=== PATIENT | female | born 1965 | race Caucasian/White ===

== ENCOUNTER 2017-06-25 07:58 | Day surgery (SDC) | payer OTHER ==
[~2017-06-25 07:58] MED LIST: Buffered Lidocaine 0.9% SYRIN* 5 ML/SYR SYRINGE INTRADERM ONE; DiMENhydriNATE IV* 50 MG/ML VIAL IV PUSH PRN; Famotidine IV* 10 MG/ML 2 ML (20 mg) IV ONE; Morphine INJ* 2 MG/ML 1 ML CARPUJECT IV PRN; Nalbuphine* 20 MG/ML 1 ML VIAL IV PRN; Naloxone* 0.4 MG/ML 1 ML VIAL IV PRN; Scopolamine 1.5 mg* PATCH TRANSDERM PRN; fentaNYL* 50 MCG/ML 2 ML VIAL (100 MCG VIAL) IV PRN; oxyCODONE/Acetamin 5/325 MG* TAB PO PRN
[2017-06-25] MEDS ORDERED: fentaNYL* 50 MCG/ML 2 ML VIAL (100 MCG VIAL) ONE (08:01)
[2017-06-25] MEDS ORDERED: Midazolam* 1 MG/ML 5 ML VIAL (5 MG) ONE (08:01)
[2017-06-25] MEDS ORDERED: Famotidine IV* 10 MG/ML 2 ML (20 mg) ONE (08:16)
[2017-06-25] MEDS ORDERED: ceFAZolin 2 GM PREMIX (*) 2 GM/50 ML BAG IVPB ONE (08:16)
[2017-06-25] MEDS ORDERED: Insulin REGULAR(*) 1 UNITS UNIT ONE (09:00)
[2017-06-25] MEDS ORDERED: PROCHLORPERAZINE INJ 5 MG/ML 2 ML VIAL ONE (09:40)
[2017-06-25] MEDS ORDERED: Propofol* 10 MG/ML 20 ML BTL IV PUSH ONE (09:40)
[2017-06-25] MEDS ORDERED: Ketorolac INJ* 30 MG/ML 1 ML VIAL ONE (09:40)
[2017-06-25] MEDS ORDERED: Ondansetron INJ* 2 MG/ML VIAL ONE (09:40)
[2017-06-25] MEDS ORDERED: Lidocaine 2% PF * 5 ML VIAL ONE (09:41)
[2017-06-25] MEDS ORDERED: Morphine INJ* 10 MG/ML 1 ML CARPUJECT ONE (09:42)
[2017-06-25] MEDS ORDERED: Bupivacaine 0.5%* 50 ML VIAL ONE (09:51)
--- NOTE | 2017-06-25 11:32 | OP ---
Operative Report - Blank - Operative Report Date of Operation: 06/25/17 Note: PATIENT: Mell Liz DATE OF : 1965 DATE OF SURGERY: 06/25/2017 SURGEON: Mauro Bhat MD HAND TOUCH UP PAINTER: BRYANNA Esteban, whos assistance was necessary for positioning, retraction, help with instrumentation, and closure. ANESTHESIOLOGIST: Pato Cummings MD PREOPERATIVE DIAGNOSIS: Left osteochondral lesion of the talus. Left ankle anterior impingement with distal tibia osteophytes. POSTOPERATIVE DIAGNOSIS: Left osteochondral lesion of the talus. Left ankle anterior impingement with distal tibia osteophytes. OPERATION: 1. Left ankle arthroscopy with extensive debridement. 2. Left ankle curettage and microfracture of talar osteochondral lesion. 3. Left ankle excision of distal tibial osteophytes/saucerization. ANESTHESIA: GETA IMPLANTS: none TOURNIQUET TIME: less than one hour with a well-padded calf tourniquet at 225 mmHg. SPECIMENS: none ESTIMATED BLOOD LOSS: minimal COMPLICATIONS: none STATUS: Stable from the operating room to the recovery room and then home. INDICATIONS FOR PROCEDURE: Mell has had persistent ankle pain at the anteromedial ankle joint and medial talar dome. She has failed nonoperative treatment. Both operative and non operative treatment alternatives were reviewed. Further, the nature and risks of surgery were reviewed in careful detail, in the office as well as the pre- operative holding area. Our discussions regarding the risks of surgery included , but were not limited to, infection, wound problems, nerve injury, neuroma, RSD , persistent symptoms, blood clot, failure of the surgery, and even the remote chance of catastrophic complication, including loss of limb. DESCRIPTION OF PROCEDURE: The patient was seen in the preoperative holding unit and informed written consent was obtained. The appropriate extremity was marked. The patient was then brought to the operating room and carefully positioned on the operating room table. Anesthesia was induced. All bony prominences were padded with great care. A chlorhexidine based pre-scrub was performed followed by a chloraprep prep and drape in standard sterile fashion. A surgical safety pause was then conducted in which we confirmed the appropriate patient, extremity, planned procedure, availability of equipment, indication and administration of prophylactic antibiotics, and DVT prophylaxis in the form of a compression boot on the non-surgical extremity. I began with placement of a sterile calf tourniquet 3 finger-breadths distal to the fibular neck. An Esmarch exsanguination of the limb was then performed and the tourniquet inflated. The leg was positioned in the noninvasive ankle arthroscopy leg haile setup. I began by establishing the anteromedial portal. I utilized a spinal needle for this. Great care was taken to protect the superficial neurovascular structures. Under direct visualization, I then established an anterolateral portal. Great care was taken to protect the superficial peroneal nerve. I utilized the full radius shaver to remove a considerable amount of synovitis from the anterior aspect of the ankle joint. This was carefully removed to give a nice view of the ankle joint. There was an osteochondral lesion of the talus at the medial talar dome. There was also a small chondral lesion on the medial malleolus. At this point, I utilized a ringed curette to remove loose debris from within the osteochondral lesion. This was curetted back to a stable rim around the perimeter of lesion. The calcified cartilage layer was then removed. I then utilized the microfracture awls to microfracture the lesion. There was healthy bleeding from the subchondral bone. I then turned my attention to the anteriormedial impingement of the ankle joint. The anterior aspect of the distal tibia was exposed using the shaver and arthroscopic cautery. This revealed a protruding osteophyte at the medial aspect of the distal tibia. A 3 mm arthroscopic kelsea was utilized to kelsea down the osteophyte perform a distal tibia saucerization and improved contour of the distal tibia. I then again utilized the full radius shaver to remove all additional debris from the ankle joint. I removed the arthroscopic equipment and closed the portals utilizing 3-0 nylon suture. At this point, a sterile dressing was applied and the ankle was splinted in a neutral position. The patient was then awakened from anesthesia and transferred to the recovery room in stable condition. There were no complications. All needle and sponge counts were correct at the end of the case. ATTESTATION: I attest I was present and scrubbed and performed the critical portions of the procedure myself. POSTOPERATIVE PLAN: Mell will remain nonweightbearing for an anticipated duration of six weeks. Follow up will be in two weeks for likely suture removal, Steri-Strip application and transition into a tall Aircast boot. The patient may begin gentle active dorsiflexion and plantarflexion of the ankle beginning two weeks postoperatively.
[2017-06-25 12:07] VITALS: BP 122/76
[2017-06-28] MEDS ORDERED: Scopolamine PATCH Remove* 1 NOTE MISC PATCH OFF ONE (05:43)
== END 2017-06-25 12:31 | disposition home or self-care (01) ==
LOC: OR 07:58
PROVIDERS: ATTEND Orthopaedic Surgery
DX: M93.272 Osteochondritis dissecans, left ankle and joints of left foot (principal); M25.772 Osteophyte, left ankle; M25.872 Other specified joint disorders, left ankle and foot; I10 Essential (primary) hypertension; E11.9 Type 2 diabetes mellitus without complications; Z79.84 Long term (current) use of oral hypoglycemic drugs; F41.8 Other specified anxiety disorders
CPT/HCPCS: J0690; J0780; J1885; J2250; J2270; J2405; J2704; J3010

== ENCOUNTER 2017-08-26 13:42 | Emergency (ER) | payer OTHER ==
[2017-08-26 14:02] VITALS: BP 140/83
[2017-08-26] MEDS ORDERED: Albuterol 2.5 MG/3 ML NEB.SOL* (0.083%) INH ONE (14:46)
[2017-08-26] MEDS ORDERED: predniSONE TAB* 20 MG PO ONE (14:46)
--- NOTE | 2017-08-26 14:50 | UC ---
Respiratory Complaint HPI - HPI Summary HPI Summary: PATIENT COMPLAINS OF BRONCHOSPASTIC COUGH, SHORTNESS OF BREATH AND WHEEZE THAT STARTED YESTERDAY. FEELS TIRED. HAS SOME LEFT FLANK PAIN BUT DENIES ANY URINARY SYMPTOMS. WORSE WITH DEEP INSPIRATION AND WHEN LAYING DOWN AT NIGHT. NO FEVER, NAUSEA, ST OR EAR PAIN. - History of Current Complaint Chief Complaint: UCRespiratory Stated Complaint: HEAD/CHEST CONGESTION COUGH LOWER BACK PAIN Time Seen by Provider: 08/26/17 14:38 Hx Obtained From: Patient Hx Last Menstrual Period: 2006, essur procedure Onset/Duration: Gradual Onset, Lasting Days - 1 DAY, Still Present Timing: Constant Severity Initially: Moderate Severity Currently: Moderate Pain Intensity: 7 Pain Scale Used: 0-10 Numeric Character: Cough: Nonproductive Aggravating Factors: Deep Breaths, Recumbent Position Alleviating Factors: Nothing Associated Signs And Symptoms: Positive: Dyspnea, Wheezing. Negative: Fever, URI, Nasal Congestion - Allergies/Home Medications Allergies/Adverse Reactions: Allergies Allergy/AdvReac Type Severity Reaction Status Date / Time No Known Allergies Allergy Verified 08/26/17 14:03 PMH/Surg Hx/FS Hx/Imm Hx Endocrine History: Diabetes - Surgical History Surgical History: Yes Surgery Procedure, Year, and Place: 2012 RIGHT SHOULDER ARTHROSCOPIC SURGERY, [place]. 2009 RIGHT KNEE ARTHROSCOPIC SURGERY, [place]. 2005 [facility] [place], [place]. left ankle surgery June 2017 - Family History Known Family History: Negative: Hypertension - Social History Alcohol Use: Occasionally Substance Use Type: None Smoking Status (MU): Never Smoked Tobacco Review of Systems Constitutional: Fatigue ENT: Nasal Discharge Respiratory: Shortness Of Breath, Cough, Other - WHEEZE Cardiovascular: Negative Gastrointestinal: Negative Genitourinary: Negative Musculoskeletal: Myalgia - LEFT MID BACK PAIN All Other Systems Reviewed And Are Negative: Yes Physical Exam Triage Information Reviewed: Yes Appearance: No Pain Distress, Well-Nourished, Ill-Appearing - MILD Vital Signs: Initial Vital Signs Temp 98.3 F 08/26/17 13:57 Pulse 86 08/26/17 13:57 Resp 16 08/26/17 13:57 BP 140/83 08/26/17 13:57 Pulse Ox 98 08/26/17 13:57 Eyes: Positive: Conjunctiva Clear ENT: Positive: Hearing grossly normal, Pharyngeal erythema, TMs normal Neck: Positive: Supple, Nontender, No Lymphadenopathy Respiratory: Positive: No respiratory distress, No accessory muscle use, Decreased breath sounds, Wheezing - DIFFUSELY Cardiovascular Exam: Normal Abdomen Description: Positive: Soft. Negative: CVA Tenderness (R), CVA Tenderness (L) Musculoskeletal: Positive: No Edema Neurological: Positive: Alert Psychological: Positive: Age Appropriate Behavior Skin: Negative: rashes UC Diagnostic Evaluation - Laboratory O2 Sat by Pulse Oximetry: 98 Re-Evaluation - Re-Evaluation First Eval Re-Evaluation Time: 15:40 - MODEST IMPROVEMENT AFTER ALBUTEROL NEB AND PREDNISONE 60MG Change: Improved Respiratory Course/Dx - Differential Dx/Diagnosis Provider Diagnoses: ACUTE BRONCHITIS WITH BRONCHOSPASM Discharge - Sign-Out/Discharge Documenting (check all that apply): Discharge/Admit/Transfer - Discharge Plan Condition: Stable Disposition: HOME Prescriptions: Albuterol 2.5MG/3ML (0.083%)* [Ventolin 2.5 MG/3 ML NEB.DARLEEN*] 2.5 mg INH Q4H PRN #1 box PRN Reason: Wheezing Albuterol HFA INHALER* [Ventolin HFA Inhaler*] 2 puff INH Q4H PRN #1 mdi PRN Reason: Shortness Of Breath Benzonatate CAP* [Tessalon CAP*] 1 - 2 cap PO TID PRN #30 cap PRN Reason: Cough Inhaler, Assist Devices [Aerochamber Mini] 1 each MC Q4H PRN #1 spacer PRN Reason: Cough Nebulizer [Mini Plus Nebulizer] 1 each MC Q4H PRN #1 each PRN Reason: Shortness Of Breath predniSONE TAB* [Deltasone TAB*] 50 mg PO DAILY #5 tab Patient Education Materials: Acute Bronchitis (ED), Bronchospasm (ED) Referrals: Ismael Pfeiffer MD [Primary Care Provider] - If Needed Additional Instructions: CHEST X-RAY TODAY WAS UNREMARKABLE. YOUR SYMPTOMS ARE LIKELY INFLAMMATORY/ VIRALLY MEDIATED AND SHOULD RESOLVE ON THEIR OWN WITH TIME. NO INDICATION FOR ANTIBIOTICS AT PRESENT. REST, HYDRATE, OTC MEDS NEEDED. WILL TREAT WITH PREDNISONE AND ALBUTEROL TO HELP WITH AIRWAY INFLAMMATION AND COUGH MEDICINE. SEEK FOLLOW-UP IF YOU ARE NOT IMPROVING OVER THE NEXT 1-2 WEEKS. TRY THE COUGH MEDICINE FOR THE FIRST TIME WHILE YOU'RE HOME TO DETERMINE IF IT MAKES YOU SLEEPY OR NOT. YOU MAY CALL ME ON THURSDAY AT THE [facility] BETWEEN 7AM AND 2PM IF YOU HAVE ANY QUESTIONS OR CONCERNS. [phone] - Billing Disposition and Condition Condition: STABLE Disposition: Home
--- NOTE | 2017-08-26 15:18 | RAD ---
Indication: Shortness of breath, cough. 2 views of the chest including dual energy PA views demonstrate no mediastinal shift. Heart is of normal size and configuration. Lung hyde are clear. IMPRESSION: No active cardiopulmonary disease is noted.
--- NOTE | 2017-08-28 13:10 | UC ---
- Progress Note Progress Note: PATIENT CALLED STATING THAT SHE IS NOT FEELING ANY BETTER WITH PREDNISONE, ALBUTEROL AND COUGH MEDICINE. AZITHROMYCIN SENT TO [facility]. ADVISED PATIENT TO CONTINUE WITH STEROIDS AND BRONCHODILATORS AND TO FOLLOW-UP WITH PCP IF STILL NOT IMPROVING DESPITE ANTIBIOTIC TREATMENT. - TOMY KIRBY M.D. Re-Evaluation - Re-Evaluation First Eval Re-Evaluation Time: 15:40 - MODEST IMPROVEMENT AFTER ALBUTEROL NEB AND PREDNISONE 60MG Change: Improved Discharge - Sign-Out/Discharge Documenting (check all that apply): Post-Discharge Follow Up - Discharge Plan Condition: Stable Disposition: HOME Prescriptions: Albuterol 2.5MG/3ML (0.083%)* [Ventolin 2.5 MG/3 ML NEB.DARLEEN*] 2.5 mg INH Q4H PRN #1 box PRN Reason: Wheezing Albuterol HFA INHALER* [Ventolin HFA Inhaler*] 2 puff INH Q4H PRN #1 mdi PRN Reason: Shortness Of Breath Azithromycin 500 mg PO DAILY #5 tab Benzonatate CAP* [Tessalon CAP*] 1 - 2 cap PO TID PRN #30 cap PRN Reason: Cough Inhaler, Assist Devices [Aerochamber Mini] 1 each MC Q4H PRN #1 spacer PRN Reason: Cough Nebulizer [Mini Plus Nebulizer] 1 each MC Q4H PRN #1 each PRN Reason: Shortness Of Breath predniSONE TAB* [Deltasone TAB*] 50 mg PO DAILY #5 tab Patient Education Materials: Acute Bronchitis (ED), Bronchospasm (ED) Referrals: Ismael Pfeiffer MD [Primary Care Provider] - If Needed Additional Instructions: CHEST X-RAY TODAY WAS UNREMARKABLE. YOUR SYMPTOMS ARE LIKELY INFLAMMATORY/ VIRALLY MEDIATED AND SHOULD RESOLVE ON THEIR OWN WITH TIME. NO INDICATION FOR ANTIBIOTICS AT PRESENT. REST, HYDRATE, OTC MEDS NEEDED. WILL TREAT WITH PREDNISONE AND ALBUTEROL TO HELP WITH AIRWAY INFLAMMATION AND COUGH MEDICINE. SEEK FOLLOW-UP IF YOU ARE NOT IMPROVING OVER THE NEXT 1-2 WEEKS. TRY THE COUGH MEDICINE FOR THE FIRST TIME WHILE YOU'RE HOME TO DETERMINE IF IT MAKES YOU SLEEPY OR NOT. YOU MAY CALL ME ON THURSDAY AT THE [facility] BETWEEN 7AM AND 2PM IF YOU HAVE ANY QUESTIONS OR CONCERNS. [phone] - Billing Disposition and Condition Condition: STABLE Disposition: Home
== END 2017-08-26 16:00 | disposition home or self-care (01) ==
LOC: UCEAST 13:42
DX: J20.9 Acute bronchitis, unspecified (principal); E11.9 Type 2 diabetes mellitus without complications
CPT/HCPCS: 71046; 99212; G0463; J7512

== ENCOUNTER 2017-09-06 13:51 | Inpatient (IN) | payer OTHER ==
[2017-09-06] MEDS ORDERED: Albuterol/Ipratropium NEB.SOL* Albuterol 2.5 MG/Ipratropium 0.5 MG 3 ML INH ONE ×2 (14:17→17:57)
[2017-09-06] MEDS ORDERED: methylPREDNISolone 125 MG* 2 ML VIAL IV ONE (14:37)
[2017-09-06 15:23] LABS: ABS Basophils 0.2 10^3/ul (0-0.2); ABS Eosinophils 0.4 10^3/ul (0-0.6); ABS Lymphocytes 3.4 10^3/ul (1.0-4.8); ABS Monocytes 0.5 10^3/ul (0-0.8); ABS Neutrophils 9.5 10^3/ul (1.5-7.7); ABS Nucleated RBC 0 10^3/ul; Eosinophil % 2.5 % (0-6); Hematocrit 42 % (35-47); Hemoglobin 14.2 g/dl (12.0-16.0); Lymphocyte % 24.5 % (25-47); Mean Corpuscular HGB Conc 34 g/dl (31-36); Mean Corpuscular Hemoglobin 28 pg (27-31); Mean Corpuscular Volume 84 fL (80-97); Mean Platelet Volume 6.9 um3 (7.4-10.4); Nucleated Red Blood Cells % 0.1; Platelet Count 434 10^3/ul (150-450); Red Blood Count 5.04 10^6/ul (4.00-5.40); Red Cell Distribution Width 14 % (10.5-15); White Blood Count 13.9 10^3/ul (3.5-10.8)
[2017-09-06 15:24] LABS: INR 0.89 (0.77-1.02)
--- NOTE | 2017-09-06 15:33 | RAD ---
HISTORY: sob,wheezing COMPARISONS: September 02, 2017 VIEWS: 1: frontal portable view of the chest at 3:11 PM FINDINGS: LINES AND TUBES: None. CARDIOMEDIASTINAL SILHOUETTE: The cardiomediastinal silhouette is normal for portable technique. PLEURA: The costophrenic angles are sharp. No pleural abnormalities are noted. LUNG PARENCHYMA: The lungs are clear. ABDOMEN: The upper abdomen is clear. There is no subphrenic gas. BONES AND SOFT TISSUES: No bone or soft tissue abnormalities are noted. IMPRESSION: NO ACTIVE CARDIOPULMONARY DISEASE.
[2017-09-06 15:37] LABS: EGFR Non-African American 58.7 (>60)
[2017-09-06] MEDS ORDERED: NS 0.9% 1000 ML* 2,000 ML IV ONE (16:07)
[2017-09-06] MEDS ORDERED: Iodixanol* (CONTRAST) 320 MG/ML 100 ML SDV IV ONE (16:17)
--- NOTE | 2017-09-06 17:25 | RAD ---
HISTORY: SOB,POSITIVE DDIMER,LIPASE 157 COMPARISONS: None TECHNIQUE: Multiple contiguous axial CT scans were obtained of the chest, abdomen, and pelvis after the administration of intravenous contrast. Coronal and sagittal multiplanar reformations are submitted for review.. Oral contrast was not administered. Delayed images were obtained through the abdomen and pelvis. FINDINGS: CHEST NECK AND THYROID: The lower neck and thyroid are unremarkable. CHEST WALL: There is no lower cervical, axillary, or supraclavicular lymphadenopathy by size criteria. HEART AND PERICARDIUM: The heart is unremarkable. AORTA AND PULMONARY VASCULATURE: The aorta and pulmonary vasculature are normal. There is no pulmonary arterial filling defect to suggest pulmonary was on MEDIASTINUM: There is no mediastinal lymphadenopathy by size criteria. PEREZ: There is no hilar lymphadenopathy by size criteria. AIRWAY AND ESOPHAGUS: The airway is unremarkable, without endobronchial filling defect. The esophagus is grossly normal. LUNG PARENCHYMA: The lungs are clear. PLEURA: No pleural abnormalities are noted. BONES AND SOFT TISSUES: Degenerative changes are noted. ABDOMEN/PELVIS: LIVER: The liver is diffusely low in attenuation compared to the spleen. There are no focal hepatic parenchymal masses. The liver is homogeneously enlarged, measuring 25 cm in long axis.. BILE DUCTS: There is no intrahepatic or extrahepatic biliary dilatation. GALLBLADDER: The gallbladder is normal, without pericholecystic inflammatory change. PANCREAS: The pancreas is normal, without mass or ductal dilatation. There is no peripancreatic inflammatory change. SPLEEN: Normal in size and appearance. UPPER GI TRACT: Evaluation of the gastrointestinal tract is limited by incomplete gastric distention. The upper GI tract is unremarkable. SMALL BOWEL & MESENTERY: The small bowel is normal in contour, course, and caliber. There is no obstruction or dilatation. COLON: The colon is normal in contour, course, caliber. There is no pericolonic inflammatory change. ADRENALS: Normal bilaterally. KIDNEYS: The kidneys are normal in shape, size, contour, and axis. There is no hydronephrosis or nephrolithiasis. BLADDER: The bladder is smooth in contour. PELVIC ORGANS: The uterus and adnexa are grossly normal for technique. Contraceptive inserts are noted. AORTA: The aorta is normal. IVC: Unremarkable LYMPH NODES: There is no lymphadenopathy by size criteria. ABDOMINAL WALL: There is no evidence for abdominal wall hernia. BONES AND SOFT TISSUES: There are mild diffuse degenerative changes. OTHER: None IMPRESSION: 1. NO PULMONARY ARTERIAL FILLING DEFECT TO SUGGEST PULMONARY EMBOLISM. 2. HEPATOMEGALY WITH FATTY INFILTRATION OF THE LIVER. 3. NO PERIPANCREATIC INFLAMMATORY CHANGE.
--- NOTE | 2017-09-06 18:40 | ED ---
Louie Mederos Jade, scribed for Kenrick Haro MD on 09/06/17 at 1439 . Respiratory - HPI Summary HPI Summary: Pt is a 52 y/o female who presents to the ED c/o SOB. She has had an upper respiratory infection for nearly 2 weeks now. As per , she started with congestion that rapidly moved to her chest. At the , her lungs were described as junky and she was given antibiotics and a nebulizer with albuterol and prednisone. Pt states none of the treatment medications improved her symptoms. She has had multiple CXRs over the past week that have been negative. Yesterday , she felt SOB momentarily, then this morning at 9:00 she started to feel like she was suffocating. She also c/o wheezing, runny nose, and stuffy ears. Pt denies fever, headache, CP, chills, or ankle swelling. notes a few days ago she was exposed to mouse droppings. PMHx diabetes, denies asthma. - History of Current Complaint Chief Complaint: EDUpperRespComplaint Stated Complaint: RESP PROBLEM Time Seen by Provider: 09/06/17 14:25 Hx Obtained From: Patient, Family/Marketing Operations Manager - Onset/Duration: Gradual Onset, Lasting Weeks - Nearly 2 weeks, Still Present Current Severity: None Pain Intensity: 0 Character: Wheezing, Dyspnea at Rest Sputum Amount: None Associated Signs and Symptoms: Wheezing, Nasal Congestion - Allergy/Home Medications Allergies/Adverse Reactions: Allergies Allergy/AdvReac Type Severity Reaction Status Date / Time No Known Allergies Allergy Verified 09/06/17 13:58 Home Medications: Home Medications Albuterol 2.5MG/3ML (0.083%)* [Ventolin 2.5 MG/3 ML NEB.DARLEEN*] 2.5 mg INH Q4HR PRN 09/06/17 [History Confirmed 09/06/17] Benzonatate CAP* [Tessalon 100 MG CAP*] 100 - 200 mg PO TID PRN 09/06/17 [ History Confirmed 09/06/17] Cholecalciferol CAP/TAB(NF) [Vitamin D3 CAP/TAB (NF)] 50,000 unit PO WE [History Confirmed 09/06/17] Lisinopril TAB* [Prinivil TAB*] 5 mg PO QAM 09/06/17 [History Confirmed 09/06/17 ] Multivitamins/Minerals TAB* [Theragran/minerals TAB*] 1 tab PO QAM 09/06/17 [ History Confirmed 09/06/17] SitaGLIPtin (NF) [Januvia (NF)] 100 mg PO QPM 09/06/17 [History Confirmed ] PMH/Surg Hx/FS Hx/Imm Hx Endocrine/Hematology History: Reports: Hx Diabetes - TYPE 2-ON ORAL MEDICATION FOR Cardiovascular History: Denies: Hx Hypertension, Hx Pacemaker/ICD, Other Cardiovascular Problems/ Disorders Respiratory History: Reports: Hx Sleep Apnea Denies: Hx Asthma History: Denies: Hx Renal Disease Musculoskeletal History: Reports: Hx Arthritis - LEFT ANKLE Sensory History: Reports: Hx Contacts or Glasses - READING GLASSES Denies: Hx Hearing Aid Opthamlomology History: Reports: Hx Contacts or Glasses - READING GLASSES Neurological History: Reports: Hx Migraine - OCCASIONAL Psychiatric History: Reports: Hx Anxiety - PRN MEDICATION FOR, Hx Depression - CONTROL WITH MEDS Denies: Hx Panic Disorder - Surgical History Surgery Procedure, Year, and Place: 2012 RIGHT SHOULDER ARTHROSCOPIC SURGERY, [place]. 2009 RIGHT KNEE ARTHROSCOPIC SURGERY, [place]. 2005 [place], [place]. left ankle surgery June 2017 Hx Anesthesia Reactions: No - Immunization History Date of Tetanus Vaccine: 2008 Date of Influenza Vaccine: 03/22/15 Infectious Disease History: No Infectious Disease History: Denies: Traveled Outside the [place] in Last 30 Days - Family History Known Family History: Negative: Hypertension - Social History Alcohol Use: Occasionally Hx Substance Use: Yes Substance Use Type: Reports: None Hx Tobacco Use: No Smoking Status (MU): Never Smoked Tobacco Review of Systems Negative: Fever, Chills ENT: Other - Stuffy ears Positive: Nasal Discharge Cardiovascular: Negative - Ankle edema Negative: Chest Pain Positive: Shortness Of Breath, Other - Wheezing Negative: Headache All Other Systems Reviewed And Are Negative: Yes Physical Exam - Summary Physical Exam Summary: General: Mildly ill-appearing, mild respiratory distress Skin: warm, color reflects adequate perfusion, dry Head: normal Eyes: EOMI, LUISA ENT: normal Neck: supple, nontender Respiratory: breath sounds present. Wheezes and rhonchi bilaterally. Cardiovascular: Tachycardic. No edema. Abdomen: soft, nontender Bowel: present Musculoskeletal: normal, strength/ROM intact Neurological: sensory/motor intact, A&O x3 Psychological: affect/mood appropriate Triage Information Reviewed: Yes Vital Signs On Initial Exam: Initial Vitals Temp Pulse Resp BP Pulse Ox 98.0 F 104 20 143/90 93 09/06/17 13:53 09/06/17 13:53 09/06/17 13:53 09/06/17 13:53 09/06/17 13:53 Vital Signs Reviewed: Yes Diagnostics - Vital Signs Vital Signs Temp Pulse Resp BP Pulse Ox 09/06/17 13:53 98.0 F 104 20 143/90 93 - Laboratory Lab Results: Lab Results 09/06/17 09/06/17 09/06/17 Range/Units 15:02 15:02 15:02 WBC 13.9 H (3.5-10.8) 10^3/ul RBC 5.04 (4.00-5.40) 10^6/ul Hgb 14.2 (12.0-16.0) g/dl Hct 42 (35-47) % MCV 84 (80-97) fL MCH 28 (27-31) pg MCHC 34 (31-36) g/dl RDW 14 (10.5-15) % Plt Count 434 (150-450) 10^3/ul MPV 6.9 L (7.4-10.4) um3 Neut % (Auto) 68.3 (38-83) % Lymph % (Auto) 24.5 L (25-47) % [place] % (Auto) 3.4 (0-7) % Eos % (Auto) 2.5 (0-6) % Baso % (Auto) 1.3 (0-2) % Absolute Neuts (auto) 9.5 H (1.5-7.7) 10^3/ul Absolute Lymphs (auto) 3.4 (1.0-4.8) 10^3/ul Absolute Monos (auto) 0.5 (0-0.8) 10^3/ul Absolute Eos (auto) 0.4 (0-0.6) 10^3/ul Absolute Basos (auto) 0.2 (0-0.2) 10^3/ul Absolute Nucleated RBC 0 10^3/ul Nucleated RBC % 0.1 INR (Anticoag Therapy) 0.89 (0.77-1.02) APTT 28.9 (26.0-36.3) seconds D-Dimer, Quantitative 425 H (Less Than 230) ng/mL Sodium 131 L (135-145) mmol/L Potassium 3.8 (3.5-5.0) mmol/L Chloride 96 L (101-111) mmol/L Carbon Dioxide 23 (22-32) mmol/L Anion Gap 12 H (2-11) mmol/L BUN 18 (6-24) mg/dL Creatinine 0.99 H (0.51-0.95) mg/dL Est GFR ( Amer) 75.5 (>60) Est GFR (Non-Af Amer) 58.7 (>60) BUN/Creatinine Ratio 18.2 (8-20) Glucose 363 H (70-100) mg/dL Lactic Acid (0.5-2.0) mmol/L Calcium 9.9 (8.6-10.3) mg/dL Magnesium 1.8 L (1.9-2.7) mg/dL Total Bilirubin 0.60 (0.2-1.0) mg/dL AST 12 L (13-39) U/L ALT 31 (7-52) U/L Alkaline Phosphatase 79 (34-104) U/L Total Creatine Kinase 58 (10-223) U/L CK-MB (CK-2) 1.4 (0.6-6.3) ng/mL Troponin I 0.00 (<0.04) ng/mL C-Reactive Protein 25.44 H (< 5.00) mg/L B-Natriuretic Peptide ( - 100) pg/mL Total Protein 8.3 (6.4-8.9) g/dL Albumin 4.2 (3.2-5.2) g/dL Globulin 4.1 H (2-4) g/dL Albumin/Globulin Ratio 1.0 (1-3) Lipase 157 H (11.0-82.0) U/L TSH 2.36 (0.34-5.60) mcIU/mL 18 09/06/17 Range/Units 15:02 15:02 WBC (3.5-10.8) 10^3/ul RBC (4.00-5.40) 10^6/ul Hgb (12.0-16.0) g/dl Hct (35-47) % MCV (80-97) fL MCH (27-31) pg MCHC (31-36) g/dl RDW (10.5-15) % Plt Count (150-450) 10^3/ul MPV (7.4-10.4) um3 Neut % (Auto) (38-83) % Lymph % (Auto) (25-47) % [place] % (Auto) (0-7) % Eos % (Auto) (0-6) % Baso % (Auto) (0-2) % Absolute Neuts (auto) (1.5-7.7) 10^3/ul Absolute Lymphs (auto) (1.0-4.8) 10^3/ul Absolute Monos (auto) (0-0.8) 10^3/ul Absolute Eos (auto) (0-0.6) 10^3/ul Absolute Basos (auto) (0-0.2) 10^3/ul Absolute Nucleated RBC 10^3/ul Nucleated RBC % INR (Anticoag Therapy) (0.77-1.02) APTT (26.0-36.3) seconds D-Dimer, Quantitative (Less Than 230) ng/mL Sodium (135-145) mmol/L Potassium (3.5-5.0) mmol/L Chloride (101-111) mmol/L Carbon Dioxide (22-32) mmol/L Anion Gap (2-11) mmol/L BUN (6-24) mg/dL Creatinine (0.51-0.95) mg/dL Est GFR ( Amer) (>60) Est GFR (Non-Af Amer) (>60) BUN/Creatinine Ratio (8-20) Glucose (70-100) mg/dL Lactic Acid 2.1 H* (0.5-2.0) mmol/L Calcium (8.6-10.3) mg/dL Magnesium (1.9-2.7) mg/dL Total Bilirubin (0.2-1.0) mg/dL AST (13-39) U/L ALT (7-52) U/L Alkaline Phosphatase (34-104) U/L Total Creatine Kinase (10-223) U/L CK-MB (CK-2) (0.6-6.3) ng/mL Troponin I (<0.04) ng/mL C-Reactive Protein (< 5.00) mg/L B-Natriuretic Peptide 10 ( - 100) pg/mL Total Protein (6.4-8.9) g/dL Albumin (3.2-5.2) g/dL Globulin (2-4) g/dL Albumin/Globulin Ratio (1-3) Lipase (11.0-82.0) U/L TSH (0.34-5.60) mcIU/mL Result Diagrams: 09/06/17 15:02 09/06/17 15:02 Lab Statement: Any lab studies that have been ordered have been reviewed, and results considered in the medical decision making process. - Radiology CXR Xray Interpretation: No Acute Changes - NO ACTIVE CARDIOPULMONARY DISEASE. ED physician reviewed radiology report. Radiology Interpretation Completed By: Radiologist - CT Chest/Abd/Pel CT CT Interpretation: Positive (See Comments) - 1. NO PULMONARY ARTERIAL FILLING DEFECT TO SUGGEST PULMONARY EMBOLISM. 2. HEPATOMEGALY WITH FATTY INFILTRATION OF THE LIVER. 3. NO PERIPANCREATIC INFLAMMATORY CHANGE. ED physician reviewed radiology report. CT Interpretation Completed By: Radiologist - EKG 17:42 Cardiac Rate: Tachycardia - 113 bpm EKG Rhythm: Sinus Rhythm ST Segment: Normal EKG Interpretation: No ectopy Disposition - Course Course Of Treatment: O2 SAT 89% ON RA AT REST AFTER NEB. ADMIT HOSPITALIST. - Diagnoses Provider Diagnoses: Hypoxia, Bronchitis, Bronchospasm Discharge - Sign-Out/Discharge Documenting (check all that apply): Discharge/Admit/Transfer - Admit Signing out patient TO: Rigo Khoury - Discharge Plan Condition: Stable Disposition: ADMITTED TO [facility] Referrals: Ismael Pfeiffer MD [Primary Care Provider] - - Billing Disposition and Condition Condition: STABLE Disposition: Admitted to [facility] The documentation as recorded by the Louie dumas Jade accurately reflects the service I personally performed and the decisions made by me, Kenrick Haro MD.
[2017-09-06] MEDS ORDERED: Magnesium Sulfate 2 GM IV* 2 GM/50 ML BAG IVPB ONE (18:50)
[2017-09-06] MEDS ORDERED: Ondansetron 40 MG VIAL* 2 MG/ML 20 ML VIAL IV PRN (19:23)
[2017-09-06] MEDS ORDERED: Acetaminophen TAB* 325 MG PO PRN (19:23)
[2017-09-06] MEDS ORDERED: Dextrose 50% Syringe 50 ML* 25 GM/50 ML SYRINGE IV PUSH PRN (19:23)
[2017-09-06] MEDS ORDERED: Benzonatate CAP* 100 MG PO PRN (19:23)
[2017-09-06] MEDS ORDERED: LORazepam TAB(*) 0.5 MG PO PRN (19:27)
[2017-09-06] MEDS ORDERED: NS 0.9% 1000 ML* 1,000 ML IV ONE (19:43)
[2017-09-06] MEDS ORDERED: NS 0.9% 1000 ML* 1,000 ML IV SCH (20:00)
[2017-09-06] MEDS: methylPREDNISolone 125 MG* 2 ML VIAL IV SCH (21:37)
[2017-09-06] MEDS: guaiFENesin ER TAB 600 MG PO SCH (21:37)
[2017-09-06] MEDS: Heparin VIAL(*) 5000 UNITS/ML VIAL (FIVE THOUSAND) SUBCUT SCH (21:40)
--- NOTE | 2017-09-06 22:47 | HP ---
CC: Dr. Pfeiffer * ADMISSION HISTORY AND PHYSICAL: DATE OF ADMISSION: 09/06/17 PRIMARY CARE PROVIDER: Dr. Pfeiffer. MY ATTENDING WHILE IN THE HOSPITAL: Dr. Jorge Decker * (DICTATED BY BRYANNA GIRALDO) CHIEF COMPLAINT: Difficulty breathing x2 weeks. HISTORY OF PRESENT ILLNESS: Ms. Liz is a 52-year-old female with past medical history significant for diabetes mellitus type 2, who approximately 2 weeks ago began to have a slightly productive cough with difficulty breathing, decreased exercise tolerance and wheezing. The patient went to Urgent Care and was prescribed prednisone and Z-Theodore as well as an inhaler. These did not help with the patient's breathing state at a constant level through these treatments. The patient had an x-ray at that time, which was negative. The patient then went back to Urgent Care 1 week after that, which was this last Thursday and had her antibiotic changed to levofloxacin. The patient was not redosed with steroids. The patient found no improvement on the levofloxacin. The patient then over the last 24 hours has had severe decrease in her shortness of breath with several episodes of not being able to catch her breath entirely as well as a significant increase in her cough with hacking cough with shortness of breath. The patient denies fevers, chills, nausea, vomiting, chest pain, diarrhea, constipation, abdominal pain. The patient denies sick contacts. The patient, before all this began, was exposed to both mouse feces in close contact as well as fungus from a dirty apartment. Both occurred about a week before her symptoms began. The patient does not have frequent infections. The patient denies sick contacts. The patient has had cold in the past, which she had wheezing that required inhalers. The patient denies any other upper respiratory complaints including nasal congestion, drainage, conjunctivitis. The patient, in the emergency department, received Solu-Medrol, albuterol, ipratropium, DuoNebs and with limited improvement and was still needed to be on 4 L of oxygen. We were asked to evaluate for admission due to respiratory distress. PAST MEDICAL HISTORY: 1. Diabetes mellitus type 2. 2. Anxiety and depression. 3. Keratosis pilaris. PAST SURGICAL HISTORY: 1. Ankle surgery in June of 2017. 2. Right knee arthroscopy in 2008. 3. Right shoulder capsular release in 2012. MEDICATIONS: 1. Zoloft 75 mg p.o. daily. 2. Glipizide 10 mg p.o. b.i.d. 3. Ativan 0.5 mg p.r.n. for anxiety daily. 4. Ambien 10 mg p.o. daily. 5. Metformin 1000 mg p.o. b.i.d. 6. Ibuprofen 400 mg p.o. b.i.d. 7. Beclomethasone ointment 1 application daily as needed. 8. Ventolin 2 puffs q.4 hours as needed for shortness of breath and wheezing. 9. Multivitamin. 10. Januvia 100 mg p.o. q. p.m. 11. Lisinopril 5 mg p.o. q. p.m. 12. Tessalon 100 mg p.o. t.i.d. 13. Albuterol nebulizer q.4 hours as needed. 14. Vitamin D3 50,000 units p.o. weekly. 15. Tylenol 650 mg p.o. b.i.d. ALLERGIES: No known drug allergies. FAMILY HISTORY: The patient's father of bone marrow cancer. The patient' s mother of Alzheimer's. The patient had 6 siblings, one brother with Parkinson's. Several other siblings with diabetes and depression. SOCIAL HISTORY: The patient is a nonsmoker. The patient drinks alcohol rarely. The patient denies illicit drug use. 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 The patient is and has no kids. The patient's surrogate decision maker is her , Eddie Michelle, who she lives with. REVIEW OF SYSTEMS: A 14-point review of systems was reviewed and is negative except as above. PHYSICAL EXAMINATION GENERAL: The patient is a 52-year-old female who appears stated age and is sitting in the bed with moderately increased work of breathing. VITAL SIGNS: At the time of admission, temperature 98.0, pulse rate 117, respiratory rate 22, oxygen saturation 92% on 4 L, blood pressure 150/91. NECK: Supple, nontender. No lymphadenopathy. No carotid bruits auscultated. No JVD. RESPIRATORY: Wheezes mainly over the bronchi, coarse rhonchi predominantly in the frontal lung hyde. Normal breath sounds in the lower lobes bilaterally. CARDIAC: Tachycardic. No clicks, murmurs, gallops or rubs. Pulses are 2+ in bilateral dorsalis pedis, posterior tibialis and radial areas. No lower extremity noted. No calf tenderness. ABDOMEN: Soft, nontender, nondistended. Bowel sounds present and normoactive in all 4 quadrants. No hepatosplenomegaly. No abdominal bruits auscultated. No hepatojugular reflux. GENITOURINARY: No suprapubic or CVA tenderness. NEURO: Cranial nerves II through XII intact. No focal deficits. Alert and oriented x3. PSYCHIATRIC: Pleasant and cooperative. SKIN: Numerous open areas of the arms, neck, face and legs consistent with erythematous rashes often due to keratosis pilaris. DIAGNOSTIC STUDIES/LAB DATA: White blood cell count 13.9, hemoglobin 14.2, platelet count 434. INR 0.89. APTT 28.9, D-dimer 425. Sodium 139, potassium 3.8, chloride 96, carbon dioxide 23, anion gap 12, BUN 18, creatinine 0.99, glucose 363, lactic acid 2.1, calcium 9.9, magnesium 1.8. Total bilirubin 0.6, AST 12, ALT 31, alkaline phosphatase 79, creatine kinase 58, CK-MB 1.4, troponin I 0.00, CRP 25.44. BNP 10. Total protein 8.3, albumin 4.2, globulin 2.1, albumin globulin ratio 1.0, lipase 157. TSH 2.36. Studies done: Chest x-ray read as no active cardiopulmonary disease. Chest and pelvis CTA read as no pulmonary arterial filling defect to suggest pulmonary embolism, hepatomegaly, fatty infiltration of liver, no peripancreatic inflammatory change. EKG read as sinus tachycardia, normal axis, no ST segment abnormalities. QTc of 468 at the rate of 113. No hypertrophy, enlargement and no other abnormalities. ASSESSMENT AND PLAN/IMPRESSION: Ms. Liz is a 52-year-old female with past medical history significant for diabetes, who has had a 2-week course of shortness of breath, which got significantly worse over the past day with no obvious provoking event, now with significant respiratory distress. The patient will be admitted to the hospital for control of reactive airway disease. 1. Acute respiratory failure. The patient is saturating in the low 90s on 4 L of oxygen. Currently, the patient has significantly increased work of breathing. The patient will be monitored closely for fatigue and positive pressure ventilation will be instituted if needed. However, at this time, the patient will be admitted to [facility]. The patient will be started on DuoNebs q.4 hours while awake and albuterol as needed in between. The patient will also have cough suppressants, expectorants and will be started on methylprednisolone 60 mg IV q.12 hours. The patient is tachycardic with an elevated white blood cell count, but tachycardia is likely due to the beta agonists and anticholinergics and the white blood cell count likely due to steroids or reactive process, however due to meeting sepsis criteria and elevated lactic acid, the patient will be given a bolus of 2 L of fluid. The patient has recently taken Levaquin, which should cover respiratory pathogens. The patient will not be restarted on antibiotics pending procalcitonin level. The patient' s chest x-ray and CT were negative. The patient had blood cultures drawn. The patient will have urinalysis. The patient has been ruled out with a CTA for pulmonary embolism. The patient had exposure to fungus and rat feces; however, this is likely due to a viral infection exacerbating underlying reactive airway disease. The patient is not immunocompromised. The patient's CT showed no signs of pneumonitis. If the patient fails to improve on current therapy, Pulmonary consultation should be considered. 2. Diabetes mellitus type 2. The patient's blood sugars were 363 on admission , it is likely due to steroid therapy and stress reactions, so the patient will have her oral antihyperglycemic medications held while in the hospital and will be maintained on sliding scale insulin. The patient will likely be able to resume her antihyperglycemic medications at discharge. 3. Anxiety. Continue the patient's Ativan and Zoloft. 4. DVT prophylaxis: The patient will be started on heparin 5000 units subcutaneous. The patient is a high risk. 5. FEN: The patient will have a fluid bolus as above and normal saline at 75 mL an hour. 6. Elevated creatinine. The patient's creatinine is at 0.99. This is consistent with previous laboratory examination, likely due to diabetes. 7. Code status: The patient would like to be a full code. The patient's surrogate decision maker is her , Eddie Michelle, as above. TIME SPENT: Approximately 60 minutes were spent on this admission, 30 of which were spent [id number] with the patient obtaining history and physical and discussing treatment plan. This plan was discussed with my attending, Dr. Jorge Decker, and he is in agreement. BRAYNNA GIRALDO [id number]/[facility] #: [id number] ELYSIA
[2017-09-06] MEDS ORDERED: Insulin LISPRO* 1 UNITS UNIT SUBCUT ONE ×2 (23:15→23:33)
[2017-09-06] MEDS: Insulin LISPRO* 1 UNITS UNIT SUBCUT SCH (23:36)
[2017-09-07] MEDS: Albuterol/Ipratropium NEB.SOL* Albuterol 2.5 MG/Ipratropium 0.5 MG 3 ML INH SCH ×7 (00:48→23:19)
[2017-09-07] MEDS: Heparin VIAL(*) 5000 UNITS/ML VIAL (FIVE THOUSAND) SUBCUT SCH ×3 (05:21→22:28)
[2017-09-07 05:31] LABS: ABS Basophils 0.1 10^3/ul (0-0.2); ABS Eosinophils 0 10^3/ul (0-0.6); ABS Monocytes 0.2 10^3/ul (0-0.8); ABS Nucleated RBC 0 10^3/ul; Eosinophil % 0.1 % (0-6); Hematocrit 37 % (35-47); Hemoglobin 12.6 g/dl (12.0-16.0); Lymphocyte % 9.3 % (25-47); Mean Corpuscular HGB Conc 34 g/dl (31-36); Mean Corpuscular Hemoglobin 29 pg (27-31); Mean Corpuscular Volume 85 fL (80-97); Mean Platelet Volume 6.8 um3 (7.4-10.4); Nucleated Red Blood Cells % 0.1; Platelet Count 407 10^3/ul (150-450); Red Blood Count 4.39 10^6/ul (4.00-5.40); Red Cell Distribution Width 15 % (10.5-15); White Blood Count 10.3 10^3/ul (3.5-10.8)
[2017-09-07 05:42] LABS: EGFR Non-African American 61.5 (>60)
[2017-09-07] MEDS ORDERED: Insulin LISPRO* 1 UNITS UNIT SUBCUT ONE ×3 (06:36→21:57)
[2017-09-07] MEDS: guaiFENesin ER TAB 600 MG PO SCH ×2 (08:34→20:39)
[2017-09-07] MEDS: Sertraline* 50 MG TAB PO SCH (08:34)
[2017-09-07] MEDS: Insulin LISPRO* 1 UNITS UNIT SUBCUT SCH ×4 (08:34→22:02)
[2017-09-07] MEDS: Lisinopril TAB* 5 MG PO SCH (08:34)
[2017-09-07] MEDS: methylPREDNISolone 125 MG* 2 ML VIAL IV SCH ×2 (08:34→20:08)
--- NOTE | 2017-09-07 17:15 | PN ---
Subjective Date of Service: 09/07/17 Interval History: Mrs. Liz is doing better today. She still c/o dyspnea with exertion, but denies chest pain, fever or chills. She has no complaints today. Her POC glucose checks have been running high, notes that she has been running occasional "300s" at home, but never higher than that. Family History: Unchanged from Admission Social History: Unchanged from Admission Past Medical History: Unchanged from Admission Objective Active Medications: Acetaminophen (Tylenol Tab*) 650 mg PO Q6H PRN PRN Reason: FEVER/PAIN Albuterol (Ventolin 2.5 Mg/3 Ml Neb.Dorita*) 2.5 mg INH Q2H PRN PRN Reason: SOB/WHEEZING Albuterol/Ipratropium (Duoneb (Albuterol 2.5 Mg/Ipratropium 0.5 Mg)) 1 neb INH [id number] AWAKE [facility] Last Admin: 09/07/17 15:04 Dose: 1 neb Benzonatate (Tessalon Cap*) 100 mg PO BID PRN PRN Reason: COUGH Last Admin: 09/06/17 21:37 Dose: 100 mg Dextrose (D50w Syringe 50 Ml*) 12.5 gm IV PUSH .FOR FS < 60 - SS PRN PRN Reason: FS < 60 Guaifenesin (Mucinex*) 1,200 mg PO BID [facility] Last Admin: 09/07/17 08:34 Dose: 1,200 mg Heparin Sodium (Porcine) (Heparin Vial(*)) 5,000 units SUBCUT Q8HR [facility] Last Admin: 09/07/17 13:22 Dose: 5,000 units Insulin Human Lispro (Humalog*) 0 units SUBCUT ACHS [facility] PRN Reason: Protocol Last Admin: 09/07/17 12:08 Dose: 15 unit Lisinopril (Prinivil Tab*) 5 mg PO QAM [facility] Last Admin: 09/07/17 08:34 Dose: 5 mg Lorazepam (Ativan Tab(*)) 0.5 mg PO DAILY PRN PRN Reason: ANXIETY Methylprednisolone Sodium Succinate (Solu-Medrol 125mg *) 60 mg IV Q12H [facility] Last Admin: 09/07/17 08:34 Dose: 60 mg Ondansetron HCl (Zofran 40 Mg Vial*) 4 mg IV Q6H PRN PRN Reason: NAUSEA Sertraline HCl (Zoloft*) 75 mg PO QAM [facility] Last Admin: 09/07/17 08:34 Dose: 75 mg Zolpidem Tartrate (Ambien Tab*) 10 mg PO BEDTIME PRN PRN Reason: INSOMNIA Vital Signs - 8 hr 09/07/17 09/07/17 09/07/17 11:44 12:09 15:06 Temperature 98.2 F Pulse Rate 91 89 94 Respiratory 18 16 20 Rate Blood Pressure 124/63 (mmHg) O2 Sat by Pulse 95 98 98 Oximetry 09/07/17 15:42 Temperature 98.0 F Pulse Rate 101 Respiratory 24 Rate Blood Pressure 120/62 (mmHg) O2 Sat by Pulse 99 Oximetry Oxygen Devices in Use Now: Nasal Cannula Appearance: Appears a little anxious, but comfortable with reassurance and in NAD. Eyes: No Scleral Icterus, PERRLA Ears/Nose/Mouth/Throat: Clear Oropharnyx, Mucous Membranes Moist Neck: NL Appearance and Movements; NL JVP, Trachea Midline Respiratory: Symmetrical Chest Expansion and Respiratory Effort, - - Lungs with bibasilar expiratory mild wheezes. No rales or rhonchi. Cardiovascular: NL Sounds; No Murmurs; No JVD, RRR Abdominal: NL Sounds; No Tenderness; No Distention Extremities: No Edema Skin: No Rash or Ulcers Neurological: Alert and Oriented x 3, NL Sensation, NL Muscle Strength and Tone Nutrition: Taking PO's Result Diagrams: 09/07/17 05:17 09/07/17 05:17 Additional Lab and Data: Lab Results 09/06/17 09/06/17 09/06/17 Range/Units 15:02 15:02 15:02 WBC 13.9 H (3.5-10.8) 10^3/ul RBC 5.04 (4.00-5.40) 10^6/ul Hgb 14.2 (12.0-16.0) g/dl Hct 42 (35-47) % MCV 84 (80-97) fL MCH 28 (27-31) pg MCHC 34 (31-36) g/dl RDW 14 (10.5-15) % Plt Count 434 (150-450) 10^3/ul MPV 6.9 L (7.4-10.4) um3 Neut % (Auto) 68.3 (38-83) % Lymph % (Auto) 24.5 L (25-47) % Butts % (Auto) 3.4 (0-7) % Eos % (Auto) 2.5 (0-6) % Baso % (Auto) 1.3 (0-2) % Absolute Neuts (auto) 9.5 H (1.5-7.7) 10^3/ul Absolute Lymphs (auto) 3.4 (1.0-4.8) 10^3/ul Absolute Monos (auto) 0.5 (0-0.8) 10^3/ul Absolute Eos (auto) 0.4 (0-0.6) 10^3/ul Absolute Basos (auto) 0.2 (0-0.2) 10^3/ul Absolute Nucleated RBC 0 10^3/ul Nucleated RBC % 0.1 INR (Anticoag Therapy) 0.89 (0.77-1.02) APTT 28.9 (26.0-36.3) seconds D-Dimer, Quantitative 425 H (Less Than 230) ng/mL Sodium 131 L (135-145) mmol/L Potassium 3.8 (3.5-5.0) mmol/L Chloride 96 L (101-111) mmol/L Carbon Dioxide 23 (22-32) mmol/L Anion Gap 12 H (2-11) mmol/L BUN 18 (6-24) mg/dL Creatinine 0.99 H (0.51-0.95) mg/dL Est GFR ( Amer) 75.5 (>60) Est GFR (Non-Af Amer) 58.7 (>60) BUN/Creatinine Ratio 18.2 (8-20) Glucose 363 H (70-100) mg/dL Lactic Acid (0.5-2.0) mmol/L Calcium 9.9 (8.6-10.3) mg/dL Magnesium 1.8 L (1.9-2.7) mg/dL Total Bilirubin 0.60 (0.2-1.0) mg/dL AST 12 L (13-39) U/L ALT 31 (7-52) U/L Alkaline Phosphatase 79 (34-104) U/L Total Creatine Kinase 58 (10-223) U/L CK-MB (CK-2) 1.4 (0.6-6.3) ng/mL Troponin I 0.00 (<0.04) ng/mL C-Reactive Protein 25.44 H (< 5.00) mg/L B-Natriuretic Peptide ( - 100) pg/mL Total Protein 8.3 (6.4-8.9) g/dL Albumin 4.2 (3.2-5.2) g/dL Globulin 4.1 H (2-4) g/dL Albumin/Globulin Ratio 1.0 (1-3) Lipase 157 H (11.0-82.0) U/L TSH 2.36 (0.34-5.60) mcIU/mL 09/06/17 09/06/17 Range/Units 15:02 15:02 WBC (3.5-10.8) 10^3/ul RBC (4.00-5.40) 10^6/ul Hgb (12.0-16.0) g/dl Hct (35-47) % MCV (80-97) fL MCH (27-31) pg MCHC (31-36) g/dl RDW (10.5-15) % Plt Count (150-450) 10^3/ul MPV (7.4-10.4) um3 Neut % (Auto) (38-83) % Lymph % (Auto) (25-47) % Butts % (Auto) (0-7) % Eos % (Auto) (0-6) % Baso % (Auto) (0-2) % Absolute Neuts (auto) (1.5-7.7) 10^3/ul Absolute Lymphs (auto) (1.0-4.8) 10^3/ul Absolute Monos (auto) (0-0.8) 10^3/ul Absolute Eos (auto) (0-0.6) 10^3/ul Absolute Basos (auto) (0-0.2) 10^3/ul Absolute Nucleated RBC 10^3/ul Nucleated RBC % INR (Anticoag Therapy) (0.77-1.02) APTT (26.0-36.3) seconds D-Dimer, Quantitative (Less Than 230) ng/mL Sodium (135-145) mmol/L Potassium (3.5-5.0) mmol/L Chloride (101-111) mmol/L Carbon Dioxide (22-32) mmol/L Anion Gap (2-11) mmol/L BUN (6-24) mg/dL Creatinine (0.51-0.95) mg/dL Est GFR ( Amer) (>60) Est GFR (Non-Af Amer) (>60) BUN/Creatinine Ratio (8-20) Glucose (70-100) mg/dL Lactic Acid 2.1 H* (0.5-2.0) mmol/L Calcium (8.6-10.3) mg/dL Magnesium (1.9-2.7) mg/dL Total Bilirubin (0.2-1.0) mg/dL AST (13-39) U/L ALT (7-52) U/L Alkaline Phosphatase (34-104) U/L Total Creatine Kinase (10-223) U/L CK-MB (CK-2) (0.6-6.3) ng/mL Troponin I (<0.04) ng/mL C-Reactive Protein (< 5.00) mg/L B-Natriuretic Peptide 10 ( - 100) pg/mL Total Protein (6.4-8.9) g/dL Albumin (3.2-5.2) g/dL Globulin (2-4) g/dL Albumin/Globulin Ratio (1-3) Lipase (11.0-82.0) U/L TSH (0.34-5.60) mcIU/mL Diagnostic Imaging: [facility] Patient Name:JOSE LIZ MR:[id number] : 1965 CTA Chest/abdomen and pelvis: IMPRESSION: 1. NO PULMONARY ARTERIAL FILLING DEFECT TO SUGGEST PULMONARY EMBOLISM. 2. HEPATOMEGALY WITH FATTY INFILTRATION OF THE LIVER. 3. NO PERIPANCREATIC INFLAMMATORY CHANGE. <Electronically signed by Sundar Potter MD in OV> 09/06/171721 Dictated By: Sundar Potter MD Dictated Date/Time: 09/06/171721 Transcribed Date/Time: 09/06/171716 Copy to: EKG Data: EKG INTERPRETATION ECG Report Patient Name JOSE LIZ Birthdate 1965 Sex F Order Number [id number] Date of ECG 09/06/2017 17:42:16 Interpretation Sinus tachycardia.rate> 99 Borderline right axis deviation.QRS axis ( 90, 99) Baseline wander in lead(s) V6 - OTHERWISE NORMAL ECG - Assess/Plan/Problems-Billing Assessment: A 52 y/o female with PMH significant for diabetes mellitus type 2, who presented to ED with 2 weeks hx progressive SOB leading to acute respiratory distress of unclear etiology and without any provoking event, who was admitted for control of reactive airway disease. - Patient Problems (1) Acute respiratory failure Current Visit: Yes Status: Acute Comment: - Feeling better with supplemental oxygen and nebs - Continue steroids - Unclear etiology, no hx asthma or COPD (2) Sepsis Current Visit: Yes Status: Acute Comment: - Meets sepsis criteria with tachycardia and leukocytosis - Likely reactive to steroid use and neb treatments - No fever - Check labs in AM (3) Diabetes mellitus Current Visit: Yes Status: Chronic Comment: - HgA1C elevated - Poorly controlled - Continue SS coverage, may add long acting insulin as well (4) Anxiety Current Visit: Yes Status: Acute Comment: - Continue Ativan and Zoloft (5) DVT prophylaxis Current Visit: Yes Status: Acute Comment: - SubQ Heparin (6) Full code status Current Visit: Yes Status: Acute Status and Disposition: Inpatient. Anticipate discharge when medically stable.
[2017-09-07] MEDS ORDERED: Dextrose 50% Syringe 50 ML* 25 GM/50 ML SYRINGE IV PUSH PRN ×2 (17:47→21:57)
[2017-09-07] MEDS ORDERED: Insulin GLARGINE(*) 1 UNITS UNIT SUBCUT SCH (21:00)
[2017-09-07] MEDS: Zolpidem TAB* 10 MG PO PRN (23:10)
[2017-09-07 23:12] LABS: Urine Appearance Clear; Urine Blood Negative (Negative); Urine Color Yellow; Urine Ketones Trace (Negative); Urine Protein Negative (Negative); Urine Specific Gravity 1.032 (1.010-1.030); Urine Urobilinogen Negative (Negative)
[2017-09-08] MEDS ORDERED: Dextrose 50% Syringe 50 ML* 25 GM/50 ML SYRINGE IV PUSH PRN ×3 (00:49→17:33)
[2017-09-08] MEDS ORDERED: Insulin LISPRO* 1 UNITS UNIT SUBCUT ONE ×4 (00:49→17:33)
[2017-09-08] MEDS ORDERED: NS 0.9% 1000 ML* 1,000 ML IV ONE (03:04)
[2017-09-08] MEDS: Albuterol/Ipratropium NEB.SOL* Albuterol 2.5 MG/Ipratropium 0.5 MG 3 ML INH SCH ×7 (03:04→23:45)
--- NOTE | 2017-09-08 03:06 | PN ---
Progress Note - Progress Note Date of Service: 09/08/17 Note: Difficulty getting patient's blood glucose under control. Large amount of Lispro given. Will check BMP to eval for HHS and U/A. Will give 1L NS and IVFs at 150 cc/hr.
[2017-09-08] MEDS ORDERED: NS 0.9% 1000 ML* 1,000 ML IV SCH (03:15)
[2017-09-08 03:52] LABS: EGFR Non-African American 60.8 (>60)
[2017-09-08] MEDS: Heparin VIAL(*) 5000 UNITS/ML VIAL (FIVE THOUSAND) SUBCUT SCH ×3 (05:10→21:55)
[2017-09-08 06:11] LABS: ABS Basophils 0.1 10^3/ul (0-0.2); ABS Eosinophils 0.1 10^3/ul (0-0.6); ABS Lymphocytes 2.5 10^3/ul (1.0-4.8); ABS Monocytes 0.8 10^3/ul (0-0.8); ABS Neutrophils 11.3 10^3/ul (1.5-7.7); ABS Nucleated RBC 0 10^3/ul; Eosinophil % 0.8 % (0-6); Hematocrit 34 % (35-47); Hemoglobin 11.3 g/dl (12.0-16.0); Lymphocyte % 16.9 % (25-47); Mean Corpuscular HGB Conc 33 g/dl (31-36); Mean Corpuscular Hemoglobin 28 pg (27-31); Mean Corpuscular Volume 85 fL (80-97); Mean Platelet Volume 6.6 um3 (7.4-10.4); Nucleated Red Blood Cells % 0.1; Platelet Count 395 10^3/ul (150-450); Red Blood Count 4.03 10^6/ul (4.00-5.40); Red Cell Distribution Width 15 % (10.5-15); White Blood Count 14.8 10^3/ul (3.5-10.8)
[2017-09-08] MEDS: Albuterol 2.5 MG/3 ML NEB.SOL* (0.083%) INH PRN (06:12)
[2017-09-08 06:44] LABS: Urine Appearance Clear; Urine Blood Negative (Negative); Urine Color Yellow; Urine Ketones Negative (Negative); Urine Protein Negative (Negative); Urine Specific Gravity 1.025 (1.010-1.030); Urine Urobilinogen Negative (Negative)
[2017-09-08] MEDS ORDERED: Insulin GLARGINE(*) 1 UNITS UNIT SUBCUT SCH ×2 (08:00→17:35)
[2017-09-08] MEDS: guaiFENesin ER TAB 600 MG PO SCH ×2 (09:07→22:03)
[2017-09-08] MEDS: Lisinopril TAB* 5 MG PO SCH (09:07)
[2017-09-08] MEDS: Sertraline* 50 MG TAB PO SCH (09:08)
[2017-09-08] MEDS: methylPREDNISolone 125 MG* 2 ML VIAL IV SCH ×2 (09:08→21:54)
[2017-09-08] MEDS: Insulin LISPRO* 1 UNITS UNIT SUBCUT SCH ×4 (09:09→21:56)
--- NOTE | 2017-09-08 10:19 | PN ---
Subjective Date of Service: 09/08/17 Interval History: Patient seen and examined. States she is feeling worse, more SOB, unable to wean O2 down. Currently on 2-3 liters. Does not feel like she's making any progress. Had to use O2 with her CPAP last night. Denies chest pain, no fever or chills, dry/unproductive cough noted. Family History: Unchanged from Admission Social History: Unchanged from Admission Past Medical History: Unchanged from Admission Objective Active Medications: Acetaminophen (Tylenol Tab*) 650 mg PO Q6H PRN PRN Reason: FEVER/PAIN Albuterol (Ventolin 2.5 Mg/3 Ml Neb.Dorita*) 2.5 mg INH Q2H PRN PRN Reason: SOB/WHEEZING Last Admin: 09/08/17 06:12 Dose: 2.5 mg Albuterol/Ipratropium (Duoneb (Albuterol 2.5 Mg/Ipratropium 0.5 Mg)) 1 neb INH [id number] AWAKE [facility] [place] Last Admin: 09/08/17 07:59 Dose: 1 neb Benzonatate (Tessalon Cap*) 100 mg PO BID PRN PRN Reason: COUGH Last Admin: 09/06/17 21:37 Dose: 100 mg Dextrose (D50w Syringe 50 Ml*) 12.5 gm IV PUSH .FOR FS < 60 - SS PRN PRN Reason: FS < 60 Guaifenesin (Mucinex*) 1,200 mg PO BID [facility] [place] Last Admin: 09/08/17 09:07 Dose: 1,200 mg Heparin Sodium (Porcine) (Heparin Vial(*)) 5,000 units SUBCUT Q8HR [facility] [place] Last Admin: 09/08/17 05:10 Dose: 5,000 units Sodium Chloride (Ns 0.9% 1000 Ml*) 1,000 mls @ 150 mls/hr IV PER RATE [facility] [place] Insulin Glargine (Lantus(*)) 10 units SUBCUT Q12H [facility] [place] Last Admin: 09/08/17 09:09 Dose: 10 unit Insulin Human Lispro (Humalog*) 0 units SUBCUT ACHS [facility] PRN Reason: Protocol Last Admin: 09/08/17 09:09 Dose: 9 unit Lisinopril (Prinivil Tab*) 5 mg PO QAM [facility] [place] Last Admin: 09/08/17 09:07 Dose: 5 mg Lorazepam (Ativan Tab(*)) 0.5 mg PO DAILY PRN PRN Reason: ANXIETY Last Admin: 09/08/17 06:33 Dose: 0.5 mg Methylprednisolone Sodium Succinate (Solu-Medrol 125mg *) 60 mg IV Q12H [facility] [place] Last Admin: 09/08/17 09:08 Dose: 60 mg Ondansetron HCl (Zofran 40 Mg Vial*) 4 mg IV Q6H PRN PRN Reason: NAUSEA Sertraline HCl (Zoloft*) 75 mg PO QAM [facility] [place] Last Admin: 09/08/17 09:08 Dose: 75 mg Zolpidem Tartrate (Ambien Tab*) 10 mg PO BEDTIME PRN PRN Reason: INSOMNIA Last Admin: 09/07/17 23:10 Dose: 10 mg Vital Signs - 8 hr 09/08/17 09/08/17 09/08/17 03:05 04:02 06:33 Temperature 97.3 F Pulse Rate 108 98 Respiratory 18 16 22 Rate Blood Pressure 131/62 (mmHg) O2 Sat by Pulse 100 99 Oximetry 09/08/17 09/08/17 09/08/17 07:36 08:01 09:10 Temperature 97.6 F Pulse Rate 103 78 Respiratory 18 16 20 Rate Blood Pressure 116/62 (mmHg) O2 Sat by Pulse 93 98 Oximetry Oxygen Devices in Use Now: Nasal Cannula Appearance: Alert, perfused, NAD Ears/Nose/Mouth/Throat: NL Teeth, Lips, Gums, Mucous Membranes Moist Neck: NL Appearance and Movements; NL JVP, Trachea Midline Respiratory: - - Increased WOB, course wheezing throughout, no rales Cardiovascular: RRR Abdominal: NL Sounds; No Tenderness; No Distention Skin: No Rash or Ulcers Neurological: Alert and Oriented x 3, NL Gait Nutrition: Taking PO's Result Diagrams: 09/08/17 05:54 09/08/17 05:54 Additional Lab and Data: Lab Results 09/06/17 09/06/17 09/06/17 Range/Units 15:02 15:02 15:02 WBC 13.9 H (3.5-10.8) 10^3/ul RBC 5.04 (4.00-5.40) 10^6/ul Hgb 14.2 (12.0-16.0) g/dl Hct 42 (35-47) % MCV 84 (80-97) fL MCH 28 (27-31) pg MCHC 34 (31-36) g/dl RDW 14 (10.5-15) % Plt Count 434 (150-450) 10^3/ul MPV 6.9 L (7.4-10.4) um3 Neut % (Auto) 68.3 (38-83) % Lymph % (Auto) 24.5 L (25-47) % Bladen % (Auto) 3.4 (0-7) % Eos % (Auto) 2.5 (0-6) % Baso % (Auto) 1.3 (0-2) % Absolute Neuts (auto) 9.5 H (1.5-7.7) 10^3/ul Absolute Lymphs (auto) 3.4 (1.0-4.8) 10^3/ul Absolute Monos (auto) 0.5 (0-0.8) 10^3/ul Absolute Eos (auto) 0.4 (0-0.6) 10^3/ul Absolute Basos (auto) 0.2 (0-0.2) 10^3/ul Absolute Nucleated RBC 0 10^3/ul Nucleated RBC % 0.1 INR (Anticoag Therapy) 0.89 (0.77-1.02) APTT 28.9 (26.0-36.3) seconds D-Dimer, Quantitative 425 H (Less Than 230) ng/mL Sodium 131 L (135-145) mmol/L Potassium 3.8 (3.5-5.0) mmol/L Chloride 96 L (101-111) mmol/L Carbon Dioxide 23 (22-32) mmol/L Anion Gap 12 H (2-11) mmol/L BUN 18 (6-24) mg/dL Creatinine 0.99 H (0.51-0.95) mg/dL Est GFR ( Amer) 75.5 (>60) Est GFR (Non-Af Amer) 58.7 (>60) BUN/Creatinine Ratio 18.2 (8-20) Glucose 363 H (70-100) mg/dL Lactic Acid (0.5-2.0) mmol/L Calcium 9.9 (8.6-10.3) mg/dL Magnesium 1.8 L (1.9-2.7) mg/dL Total Bilirubin 0.60 (0.2-1.0) mg/dL AST 12 L (13-39) U/L ALT 31 (7-52) U/L Alkaline Phosphatase 79 (34-104) U/L Total Creatine Kinase 58 (10-223) U/L CK-MB (CK-2) 1.4 (0.6-6.3) ng/mL Troponin I 0.00 (<0.04) ng/mL C-Reactive Protein 25.44 H (< 5.00) mg/L B-Natriuretic Peptide ( - 100) pg/mL Total Protein 8.3 (6.4-8.9) g/dL Albumin 4.2 (3.2-5.2) g/dL Globulin 4.1 H (2-4) g/dL Albumin/Globulin Ratio 1.0 (1-3) Lipase 157 H (11.0-82.0) U/L TSH 2.36 (0.34-5.60) mcIU/mL 09/06/17 09/06/17 Range/Units 15:02 15:02 WBC (3.5-10.8) 10^3/ul RBC (4.00-5.40) 10^6/ul Hgb (12.0-16.0) g/dl Hct (35-47) % MCV (80-97) fL MCH (27-31) pg MCHC (31-36) g/dl RDW (10.5-15) % Plt Count (150-450) 10^3/ul MPV (7.4-10.4) um3 Neut % (Auto) (38-83) % Lymph % (Auto) (25-47) % Bladen % (Auto) (0-7) % Eos % (Auto) (0-6) % Baso % (Auto) (0-2) % Absolute Neuts (auto) (1.5-7.7) 10^3/ul Absolute Lymphs (auto) (1.0-4.8) 10^3/ul Absolute Monos (auto) (0-0.8) 10^3/ul Absolute Eos (auto) (0-0.6) 10^3/ul Absolute Basos (auto) (0-0.2) 10^3/ul Absolute Nucleated RBC 10^3/ul Nucleated RBC % INR (Anticoag Therapy) (0.77-1.02) APTT (26.0-36.3) seconds D-Dimer, Quantitative (Less Than 230) ng/mL Sodium (135-145) mmol/L Potassium (3.5-5.0) mmol/L Chloride (101-111) mmol/L Carbon Dioxide (22-32) mmol/L Anion Gap (2-11) mmol/L BUN (6-24) mg/dL Creatinine (0.51-0.95) mg/dL Est GFR ( Amer) (>60) Est GFR (Non-Af Amer) (>60) BUN/Creatinine Ratio (8-20) Glucose (70-100) mg/dL Lactic Acid 2.1 H* (0.5-2.0) mmol/L Calcium (8.6-10.3) mg/dL Magnesium (1.9-2.7) mg/dL Total Bilirubin (0.2-1.0) mg/dL AST (13-39) U/L ALT (7-52) U/L Alkaline Phosphatase (34-104) U/L Total Creatine Kinase (10-223) U/L CK-MB (CK-2) (0.6-6.3) ng/mL Troponin I (<0.04) ng/mL C-Reactive Protein (< 5.00) mg/L B-Natriuretic Peptide 10 ( - 100) pg/mL Total Protein (6.4-8.9) g/dL Albumin (3.2-5.2) g/dL Globulin (2-4) g/dL Albumin/Globulin Ratio (1-3) Lipase (11.0-82.0) U/L TSH (0.34-5.60) mcIU/mL Microbiology and Other Data: Microbiology 09/07/17 05:16 Aerobic Blood Culture - Preliminary Blood Venous No Growth Day 1 Anaerobic Blood Culture - Preliminary No Growth Day 1 Diagnostic Imaging: [facility] Patient Name:JOSE GALEANO MR:[id number] : 1965 CTA Chest/abdomen and pelvis: IMPRESSION: 1. NO PULMONARY ARTERIAL FILLING DEFECT TO SUGGEST PULMONARY EMBOLISM. 2. HEPATOMEGALY WITH FATTY INFILTRATION OF THE LIVER. 3. NO PERIPANCREATIC INFLAMMATORY CHANGE. <Electronically signed by Sundar Potter MD in [place]> 09/06/171721 Dictated By: Sundar Potter MD Dictated Date/Time: 09/06/171721 Transcribed Date/Time: 09/06/171716 Copy to: EKG Data: EKG INTERPRETATION ECG Report Patient Name JOSE GALEANO Birthdate 1965 Sex F Order Number [id number] Date of ECG 09/06/2017 17:42:16 Interpretation Sinus tachycardia.rate> 99 Borderline right axis deviation.QRS axis ( 90, 99) Baseline wander in lead(s) V6 - OTHERWISE NORMAL ECG - Assess/Plan/Problems-Billing Assessment: A 52 y/o female with PMH significant for diabetes mellitus type 2, who presented to ED with 2 weeks hx progressive SOB leading to acute respiratory distress of unclear etiology and without any provoking event, who was admitted for control of reactive airway disease. - Patient Problems (1) Acute respiratory failure Code(s): J96.00 - ACUTE RESPIRATORY FAILURE, UNSP W HYPOXIA OR HYPERCAPNIA SNOMED Code(s): 68054375 Comment: - Failed O2 wean last night - Steroids do not seem to be helping, no consolidation on imaging - Unclear etiology, no hx asthma or COPD per patient? - Will consult Dr. Bobo today (2) Diabetes mellitus Code(s): E11.9 - TYPE 2 DIABETES MELLITUS WITHOUT COMPLICATIONS SNOMED Code(s) : 19893100 Comment: - HgA1C elevated - Poorly controlled, likely getting worse with steroids - Increased lantus today to BID, continue SS with lispro - Cons carb diet, modified to NO SUGAR (3) Anxiety Code(s): F41.9 - ANXIETY DISORDER, UNSPECIFIED SNOMED Code(s): 74917081 Comment: - Stable, continue Ativan and Zoloft (4) DVT prophylaxis Code(s): OYG1889 - SNOMED Code(s): 679956243 Comment: - SubQ Heparin (5) Full code status Code(s): Z78.9 - OTHER SPECIFIED HEALTH STATUS SNOMED Code(s): 011432106 Status and Disposition: Remain inpatient.
--- NOTE | 2017-09-08 21:35 | CONS ---
PULMONARY CONSULTATION REPORT: DATE OF CONSULT: 09/08/17 CONSULTATION REQUESTED BY: Birgit Koehler NP REASON FOR CONSULTATION: Evaluation of shortness of breath. HISTORY OF PRESENT ILLNESS: The patient is a 52-year-old morbidly obese female with a history of diabetes, anxiety and depression, sleep apnea, on CPAP. The patient presents for evaluation of worsening shortness of breath over the past 2 weeks. The patient reports recent change in job environment with exposure to mice feces, dust, etc. The patient started having worsening shortness of breath over the past 2 weeks. She was evaluated by her primary care physician, was prescribed Z-Theodore and inhaler. She has not picked up inhaler, which appears to be Spiriva. The patient was seen in urgent care 1 week ago and was prescribed levofloxacin. The patient was prescribed prednisone by a primary care physician. The patient reported no improvement in symptoms and presented to hospital for further evaluation. The patient denies fevers, chills, nausea, vomiting, chest pain, diarrhea, constipation, or abdominal pain. The patient reports having URI symptoms recently in view of her friends. The patient reports that she had similar episode 20 years ago. The patient was admitted for management of reactive airways disease. She was also noted to be hypoxemic requiring O2 supplementation at 4 L per minute on admission. Pulmonary consultation was requested for ongoing symptoms. The patient was seen and examined at bedside. The patient appears slightly anxious. She has reported that her shortness of breath has only slightly improved since admission. The patient reports dry cough. The patient also reports chest tightness and wheezing. She has been on nebulizer treatments, O2 supplementation at 3 L per minute. She was also given incentive spirometer, which she is using less intermittently. The patient reports not being able to take deep breaths for fear of having a cough. The patient had CTA of the chest for evaluation of possible pulmonary embolism. I have personally reviewed CT of the chest - no evidence of filling defects in pulmonary arteries. The patient noted to have no parenchymal opacities. PAST MEDICAL HISTORY: 1. Diabetes type 2. 2. Anxiety, depression. 3. Keratosis pilaris. 4. Obstructive sleep apnea, on CPAP. PAST SURGICAL HISTORY: 1. Ankle surgery in June 2017. 2. Right knee arthroplasty in 2008. 3. Right shoulder capsular release in 2012. MEDICATIONS: 1. Zoloft. 2. Glipizide. 3. Ativan. 4. Ambien. 5. Metformin. 6. Ibuprofen. 7. Beclomethasone. 8. Ventolin. 9. Multivitamin. 10. Januvia. 11. Lisinopril. 12. Tessalon. 13. Albuterol. 14. Vitamin D3. 15. Tylenol. ALLERGIES: No known drug allergies. FAMILY HISTORY: Father of bone marrow cancer, mother of Alzheimer's. The patient has 6 siblings, 1 brother with Parkinson's and other siblings with diabetes and depression. SOCIAL HISTORY: Lifelong nonsmoker. Occasional social alcohol intake. Denies drug abuse. 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 REVIEW OF SYSTEMS: All 14 systems reviewed and as per HPI. PHYSICAL EXAM: Morbidly obese female in bed, in no apparent distress. Vital Signs: Temperature 97.8, pulse 98 beats per minute, respiratory rate 14 per minute, O2 sat 99% on 4 L, blood pressure 126/72. HEENT: Pupils are equal and reactive to light, no accessory respiratory muscle usage, Mallampati class 4 airway. Respiratory: Diminished air entry bilaterally, prolonged expiratory phase, wheezing present on auscultation. Cardiovascular: S1, S2 present, regular. Abdomen: Obese, bowel sounds present, nontender, nondistended. Neuro : No focal deficits. Skin: No rash, bruises from IV insertion sites. DIAGNOSTIC STUDIES/LAB DATA: WBC 14.8, hemoglobin 11.3, hematocrit 34, platelet count 395. No elevated eosinophils. Sodium 134, potassium 3.9, chloride 105, bicarb 20, BUN 22, creatinine 0.86, sugars elevated, calcium 8.4. UA showed 3+ glucose, otherwise negative. CT of the chest as described above in HPI. IMPRESSION AND RECOMMENDATIONS: 52-year-old female, morbidly obese with history of sleep apnea, admitted with worsening shortness of breath over the past week since she started new job at [employer], exposed to lot of dust, urine and feces from mice with reactive airways disease versus hypersensitivity pneumonitis. CT of the chest did not reveal pulmonary embolism or pneumonia or evidence of ground-glass opacities. The patient still with significant coughing and tightness. Continue with IV Solu-Medrol 60 mg q.12. O2 requirement seemed to be coming down. I checked her with decreasing the oxygen to 2 L and she was still 96% to 97%. Continue titrating oxygen. Will reassess need for oxygen prior to discharge tomorrow. Would recommend discharging the patient on Dulera and rescue inhaler and longer prednisone taper over 2 weeks. Continue with CPAP for ELISSA. The patient has not been compliant and this was addressed with the patient. Thank you for allowing me to participate in the care of your patient. [id number]/[facility] #: [id number] ELYSIA
[2017-09-08] MEDS: guaiFENesin/CODIEN 100MG-10MG* 5 ML UDC PO PRN (21:53)
[2017-09-08] MEDS: Insulin GLARGINE(*) 1 UNITS UNIT SUBCUT SCH (21:56)
[2017-09-08] MEDS: Zolpidem TAB* 10 MG PO PRN (21:59)
[2017-09-09] MEDS: Albuterol/Ipratropium NEB.SOL* Albuterol 2.5 MG/Ipratropium 0.5 MG 3 ML INH SCH ×4 (04:15→12:05)
[2017-09-09] MEDS: guaiFENesin/CODIEN 100MG-10MG* 5 ML UDC PO PRN (05:05)
[2017-09-09] MEDS: Heparin VIAL(*) 5000 UNITS/ML VIAL (FIVE THOUSAND) SUBCUT SCH ×2 (05:09→13:03)
[2017-09-09] MEDS: Albuterol 2.5 MG/3 ML NEB.SOL* (0.083%) INH PRN (07:45)
[2017-09-09] MEDS: Insulin GLARGINE(*) 1 UNITS UNIT SUBCUT SCH (08:40)
[2017-09-09] MEDS: Insulin LISPRO* 1 UNITS UNIT SUBCUT SCH ×2 (08:41→12:54)
[2017-09-09] MEDS: methylPREDNISolone 125 MG* 2 ML VIAL IV SCH (08:44)
[2017-09-09] MEDS: Lisinopril TAB* 5 MG PO SCH (08:48)
[2017-09-09] MEDS: Sertraline* 50 MG TAB PO SCH (08:49)
[2017-09-09 11:21] VITALS: BP 133/81
--- NOTE | 2017-09-09 16:17 | DS ---
CC: Dr. Ismael Pfeiffer * DATE OF ADMISSION: 09/06/2017. DATE OF DISCHARGE: 09/09/2017. PRIMARY CARE PHYSICIAN: Dr. Ismael Pfeiffer. ATTENDING PHYSICIAN: Dr. Decker. MY ATTENDING PHYSICIAN FOR TODAY: Dr. Fany Stockton * (dictated by Kassidy Koehler NP). HOSPITAL COURSE: This is a very pleasant, 52-year-old female patient who reported failing outpatient treatment of some bronchitis and upper respiratory infection. The patient states that she had two courses of antibiotics prior to her arrival in the emergency department. Her chief complaint was cough with shortness of breath. She had been to Urgent Care several times and also had been on Prednisone; however, her symptoms persisted and after failing Levaquin was sent to the emergency department for evaluation. The patient was found to be hypoxic in the emergency department. She received DuoNeb treatments and still needed 4 liters of oxygen at that time. She was admitted for acute respiratory distress. The patient was given IV steroids and nebulizer treatments. We held off on antibiotics as the patient did not have a white count and did not have any consolidation on her chest x-ray or CAT scan. Also of note, her calcitonin level was negative. CTA was negative for pulmonary embolism. Chest x-ray was also negative for consolidation. The patient again did not improve in the emergency department and was admitted for acute respiratory failure. She also had some severe hyperglycemia. Blood sugars were in the high 300s on admission which we attributed to steroid therapy; however, the patient stated that she was having high sugars at home prior to her admission. The patient's only other medical history is anxiety, obesity, and diabetes mellitus type 2. The patient received again nebulizer treatments, steroids, cough medicine, and Tylenol as needed. She was placed on an insulin sliding scale for her elevated sugars. We also placed her on long-acting insulin as well. There were several instances during her admission where her sugar was up over 500 requiring fluids and additional insulin. Again, the patient has been on IV steroids two times a day since her admission, which again is contributing to her hyperglycemia. After several discussion with the patient regarding her blood sugar, she is also seen by Dr. Forrest Lincoln and is prepping for gastric bypass surgery and was planning on actually starting insulin as an outpatient. Given the acute nature of her illness, we felt it prudent to continue her insulin at home now instead of waiting until next month which was her initial plan. The patient was seen by Dr. Lashon Bobo of Pulmonology who was in agreement that per Dr. Bobo's recommendation, she feels that she is having reactive airway disease versus hypersensitivity pneumonitis. 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 At this point, she still has a pretty severe cough and tightness. However, her air exchange improved today. She had less wheezing and was able to be on room air and wean off her oxygen. She was 97 percent with ambulation on room air. The patient then was ready for discharge on her new insulin regimen and also started on inhalers. DISCHARGE DIAGNOSES: 1. Acute respiratory failure secondary to reactive airway disease. 2. Diabetes mellitus type 2 with uncontrolled hyperglycemia. 3. History of anxiety and depression, stable. 4. History of obstructive sleep apnea with some noncompliance of CPAP at home. DISCHARGE MEDICATIONS: 1. Metformin 1,000 mg p.o. b.i.d. 2. Vitamin D3 50,000 units weekly. 3. Betamethasone ointment topical as needed. 4. Multivitamin one tablet daily. 5. Zolpidem 10 mg at bedtime. 6. Lorazepam 0.5 mg daily as needed. 7. Lisinopril 5 mg daily. 8. Sertraline 75 mg daily. 9. Prednisone taper 60 mg a day, taper by 10 mg q.3 days until complete. 10. Guaifenesin with Codeine 5 ml p.o. q.6 hours as needed. 11. Dulera 200/5 inhaler two puffs 2 times a day. 12. Lispro 10 units subcu 3 times a day plus coverage. 13. Insulin Glargine 20 units subcu 8:00 a.m. and 8:00 p.m. 14. Albuterol rescue inhaler two puffs q.4 hours as needed. REVIEW OF SYSTEMS: On the day of discharge, the patient does not have an acute complaints, says she feels well. She does have a significant cough, but feels her breathing is much improved. Denies any acute shortness of breath at this time. No chest pain, no nausea, no vomiting, no fevers, no chills. No arthralgias or myalgias and no further constitutional complaints. PHYSICAL EXAMINATION TODAY: Vital Signs: Blood pressure 133/81, respiratory rate 18, O2 saturation 98 percent on room air, temperature 97.1, heart rate 87. HEENT: The patient is atraumatic, normocephalic. PERRLA with nonicteric sclerae. Neck: Supple, nontender. No JVD noted. No carotid bruit auscultated. Cardiovascular: S1, S2 present. No murmurs, gallops or rubs. Lungs: She has good air entry. She does have a bilateral expiratory wheeze. No rhonchi or rales appreciated. Abdomen: Soft, nontender, nondistended. Positive bowel sounds all four quadrants. Abdomen is obese. Musculoskeletal: There is no clubbing, no cyanosis, no edema. She has +2 distal pulses palpable. She has a steady gait, unassisted. Neurologic: Grossly intact with no focal deficits. Psychiatric: She is cooperative and appropriate. LABORATORY DATA: WBC 14.8, RBC 4.03, hemoglobin 11.3, hematocrit 34, platelets 395, blood sugar 357 for which she received coverage; sodium 134, potassium 3.9 , chloride 105, CO2 20, BUN 22, creatinine 0.86, lactic acid 1.6, procalcitonin 0.1, TSH 2.36. IMAGING: CAT scan negative for PE. Chest x-ray: No acute cardiopulmonary process. DISPOSITION: The patient was discharged in the care of her to home today. She did not have an oxygen requirement. She was instructed to follow-up with Dr. Pfeiffer, her primary care provider; however, he cannot see her until the end of the month, so we set her up with an appointment for the [facility] in two days with Dr. Santos to follow-up checking her oxygen saturation and also checking her blood sugar. The patient was also instructed to follow-up with Dr. Lashon Bobo in the next two weeks after she is done with her steroid taper. She may likely need some pulmonary function tests and also some titration of her CPAP depending on how she heals from this acute process. The patient was discharged in stable condition. All questions were answered. Medications and diabetic teaching for her insulin pens were provided to which she responded well to teaching. KASSIDY KOEHLER, [address] [id number]/[facility] #: [id number] ELYS[place]
== END 2017-09-09 14:30 | disposition home or self-care (01) | DRG 189 ==
LOC: ED 13:51 → MED 19:23
PROVIDERS: ADMIT Hospitalist; ATTEND Internal Medicine
DX: J96.01 Acute respiratory failure with hypoxia (principal); J45.909 Unspecified asthma, uncomplicated; E11.65 Type 2 diabetes mellitus with hyperglycemia; F41.8 Other specified anxiety disorders; G47.33 Obstructive sleep apnea (adult) (pediatric); E66.01 Morbid (severe) obesity due to excess calories; L85.8 Other specified epidermal thickening; Z68.34 Body mass index [BMI] 34.0-34.9, adult; Z79.84 Long term (current) use of oral hypoglycemic drugs; Z79.1 Long term (current) use of non-steroidal anti-inflammatories (NSAID); Z79.899 Other long term (current) drug therapy; Z80.8 Family history of malignant neoplasm of other organs or systems; Z83.3 Family history of diabetes mellitus; Z81.8 Family history of other mental and behavioral disorders; Z82.69 Family history of other diseases of the musculoskeletal system and connective tissue
CPT/HCPCS: 36415; 71045; 71275; 74177; 80048; 80053; 81003; 82550; 82553; 82947; 83605; 83690; 83735; 83880; 84145; 84443; 84484; 85025; 85379; 85610; 85730; 86140; 87040; 93005; 94640; 94660; 99284; A9270-GY; J1644; J2930; J3475; Q9967

== ENCOUNTER 2018-09-08 07:43 | Inpatient (IN) | payer OTHER ==
[~2018-09-08 07:43] MED LIST changes: -Buffered Lidocaine 0.9% SYRIN* 5 ML/SYR SYRINGE INTRADERM ONE; +Buffered Lidocaine 1% SYRIN* 1 ML/SYRINGE INTRADERM ONE; -DiMENhydriNATE IV* 50 MG/ML VIAL IV PUSH PRN; -Famotidine IV* 10 MG/ML 2 ML (20 mg) IV ONE; +Famotidine IV* 10 MG/ML 2 ML (20 mg) ONE; +Lactated Ringers 1000 ML Bag* 1,000 ML IV SCH; -Morphine INJ* 2 MG/ML 1 ML CARPUJECT IV PRN; -Nalbuphine* 20 MG/ML 1 ML VIAL IV PRN; -Naloxone* 0.4 MG/ML 1 ML VIAL IV PRN; -Scopolamine 1.5 mg* PATCH TRANSDERM PRN; -fentaNYL* 50 MCG/ML 2 ML VIAL (100 MCG VIAL) IV PRN; -oxyCODONE/Acetamin 5/325 MG* TAB PO PRN
--- OUTSIDE RECORDS SUMMARY | 2018-09-08 07:47 | XMS REPORT | Continuity of Care Document ---
:1965 External Reference #:[id number] Author Name Lynne Mary Care Team Providers Name Role Phone Ismael Pfeiffer MD Primary Care Physician Unavailable Payers Date Identification Numbers Payment Provider Subscriber Policy Number: [id number] [employer] Eddie Michelle [employer] Number: [id number] [address] PayID: [id number] [place] [address] Expires: 2016 Policy Number: [id number] [facility] Mell Liz PayID: [id number] [address] [place] [address] Problems Active Problems Provider Date Difficulty breathing Lashon Bobo MD Onset: 08/08/2015 Obesity Lashon Bobo MD Onset: 08/08/2015 Obstructive sleep apnea syndrome Stephanie Connelly DNP, RN, PRINCIPAL CLERK TYPIST-BC Onset: 10/2015 Insomnia Stephanie Connelly DNP RN, PRINCIPAL CLERK TYPIST-BC Onset: 01/15/2016 Note: maintenance Osteochondritis dissecans Mauro Bhat MD Onset: 05/29/2017 Enthesopathy of ankle AND/OR tarsus Mauro Bhat MD Onset: 06/12/2017 Other synovitis and tenosynovitis, left ankle and Mauro Bhat MD Onset: foot Dyspnea Dario Hurley MD Onset: 09/15/2017 Long-term current use of insulin Dario Hurley MD Onset: 09/15/2017 Type 2 diabetes mellitus Dario Hurley MD Onset: 09/15/2017 Body mass index 30+ - obesity Dario Hurley MD Onset: 09/15/2017 Family History Date Family Member(s) Observation Comments General noncontribitory Father due to Diabetes () Father due to Leukemia () Mother due to Alzheimer's Disease () Siblings 6 1 brother skin cancer , 1 sister obesity, high cholesterol, diabetes type 2 Social History Type Date Description Comments Sex Unknown Marital Status Lives With 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 Tobacco Use Start: Unknown Never Smoked Cigarettes Smoking Status Reviewed: 08/18/18 Never Smoked Cigarettes ETOH Use Occasionally consumes alcohol Tobacco Use Start: Unknown Patient has never smoked Recreational Drug Use Denies Drug Use Exercise Type/Frequency Exercises rarely Allergies, Adverse Reactions, Alerts Description No Known Drug Allergies Medications Active Medications SIG Qnty Indications Ordering Date Provider Pen [place] use 1 pen needle 200units Jimbo Aguilar MD 07/14/2018 32G X 4 mm 4 times/day with Misc insulin Levemir Flextouch 50 units SQ once 15ml E11.21 Jimbo Aguilar MD 07/12/2018 daily 100Unit/ML Solution Pen-Inject Jardiance 10mg by mouth 90tabs E11.9 Jimbo Aguilar MD 02/10/2018 10mg Tablets daily Zolpidem Tartrate 1 tab at at 14tabs Stephanie Connelly, 08/05/2016 5mg bedtime x 4-7 DNP, RN, PRINCIPAL CLERK TYPIST-BC Tablets nights, july repeat x 1 for inability to sleep through the night. Metformin HCL 1 by mouth twice Unknown 08/07/2015 1000mg a day Tablets Lisinopril 1 by mouth every Unknown 08/07/2015 5mg Tablets day Lorazepam 1-2 by mouth Unknown 08/06/2015 0.5mg Tablets daily prn Sertraline HCL 1.5 tablets by Unknown 50mg mouth every day Tablets Novolog Flexpen Inject 10 units Unknown SQ three times 100Unit/ML Solution daily with meals Pen-Inject Ibuprofen 1 tablet by Unknown 600mg Tablets mouth as needed Vitamin D3 1 by mouth every Unknown 1000Unit day Tablets Essure Sterilization titanium bee Unknown bees in fallopian tubes Betamethasone apply thin layer Unknown Dipropionate as needed 0.05% Ointment Multi Vitamin Daily 1 by mouth every Unknown day Tablets History Medications Zoloft 1 by mouth every 90tabs Mauro Bhat, 11/02/2017 - 75mg Tablets day 08/10/2018 Oxycodone HCL 1 tabs by mouth 20tabs Mauro Bhat, 06/25/2017 - 5mg every 4-6 hours as 09/02/2017 Tablets needed Glipizide 1 tab by Unknown 06/23/2016 - 10mg twicedaily 09/09/2017 Tablets Intermezzo 1 by mouth if 10tabs G47.33 Stephanie Connelly, 01/15/2016 - 1.75mg awaken and unabe KIN RN, PRINCIPAL CLERK TYPIST-BC 08/05/2016 Tablets Sub to fall asleep, as needed with 4 hours left to sleep Intermezzo 1 po if awaken in 10tabs G47.33 Stephanie Connelly, 01/15/2016 - 1.75mg the night with KIN RN, PRINCIPAL CLERK TYPIST-BC 01/15/2016 Tablets Sub inability to fall asleep and allow 4-hour to sleep. MAy take up to 3 nights,prn Sertraline HCL 1 1/2 tab by Unknown 08/07/2015 - 50mg mouth every day 11/01/2017 Tablets Clobetasol apply thin film Unknown 08/07/2015 - Propionate twice daily as 09/09/2017 0.05% needed Cream Estrace 1 application two Unknown 08/06/2015 - 0.1mg/GM times weekly 05/13/2017 Cream Dulera 2 puff twice a day Unknown - 200-5mcg/Act 02/09/2018 Aerosol Ventolin HFA 2 puffs by mouth Unknown - four times a day 02/09/2018 108(90Base) mcg/Act as needed Aerosol Lantus Solostar 50 units SQ once Unknown - daily 07/12/2018 100Unit/ML Solution Pen-Inject Humalog Kwikpen 10 units 3 times Jimbo Aguilar MD - daily 07/12/2018 100Unit/ML Solution Pen-Inject Dulera 2 puff twice a day Unknown - 200-5mcg/Act 11/10/2017 Aerosol Guaifenesin-Codeine 5ml every 4-6 Unknown - hours for cough 11/10/2017 100-10mg/5ML Syrup Prednisone 3 tabs q day, Unknown - 10mg (21) taper until done. 11/10/2017 TBPK Guaifenesin ER 1 tab by mouth Unknown - 1200mg twice a day 09/09/2017 Tablets ER 12HR Vitamin D3 Adult 1 by mouth one Unknown - Gummies time per day 11/10/2017 2000Unit Chewtabs Ventolin HFA Inhale 2 Puffs By Unknown - Mouth Every 4 11/10/2017 108(90Base) mcg/Act Hours as Needed Aerosol For Shortness Of Breat Albuterol Sulfate Inhale The Unknown - Contents Of 1 Vial 09/09/2017 (2.5mg/3ML) 0.083% Via Nebulizer Nebulizer Every 4 Hours as Needed Fo Levofloxacin Take 1 Tablet By Unknown - 500mg Mouth Every Day 09/09/2017 Tablets Januvia 1 by mouth every Unknown - Tablets day 09/09/2017 Tylenol 2 by mouth two Unknown - 325mg Tablets times per day as 11/10/2017 needed Ibuprofen by mouth every 4 Unknown - 400mg to 6 hours as 05/07/2018 Tablets needed Vital Signs Date Vital Result Comment 08/18/2018 1:33pm Height 70 inches 5'10" Weight 251.00 lb Heart Rate 84 /min BP Systolic Sitting 118 mmHg Rue lg cuff BP Diastolic Sitting 68 mmHg Rue lg cuff BP Systolic Standing 114 mmHg Lue lg cuff BP Diastolic Standing 64 mmHg Lue lg cuff BP Systolic Lying Down 120 mmHg Lue reg cuff BP Diastolic Lying Down 66 mmHg Lue reg cuff Respiratory Rate 16 /min BMI (Body Mass Index) 36.0 kg/m2 08/13/2018 11:58am Height 70 inches 5'10" Weight 251.00 lb w/ shoes Heart Rate 70 /min BP Systolic Sitting 111 mmHg BP Diastolic Sitting 71 mmHg BMI (Body Mass Index) 36.0 kg/m2 05/12/2018 2:43pm Height 70 inches 5'10" Weight 250.00 lb w/ shoes Heart Rate 97 /min BP Systolic Sitting 102 mmHg BP Diastolic Sitting 69 mmHg BMI (Body Mass Index) 35.9 kg/m2 05/07/2018 11:36am Height 70 inches 5'10" Weight 243.25 lb Heart Rate 74 /min BP Systolic Sitting 98 mmHg Lue large cuff BP Diastolic Sitting 74 mmHg Lue large cuff Respiratory Rate 16 /min O2 % BldC Oximetry 97 % On Ra BMI (Body Mass Index) 34.9 kg/m2 02/10/2018 1:37pm Height 70 inches 5'10" Weight 249.00 lb w/ shoes Heart Rate 77 /min BP Systolic Sitting 108 mmHg BP Diastolic Sitting 63 mmHg BMI (Body Mass Index) 35.7 kg/m2 11/11/2017 9:34am Height 70 inches 5'10" Weight 246.12 lb Heart Rate 80 /min BP Systolic Sitting 110 mmHg Rue large cuff BP Diastolic Sitting 70 mmHg Rue large cuff Respiratory Rate 12 /min O2 % BldC Oximetry 97 % BMI (Body Mass Index) 35.3 kg/m2 11/02/2017 11:36am Height 70 inches 5'10" Weight 248.00 lb Heart Rate 72 /min BP Systolic 128 mmHg BP Diastolic 76 mmHg Respiratory Rate 12 /min Pain Level 1 BMI (Body Mass Index) 35.6 kg/m2 09/21/2017 8:33am Height 70 inches 5'10" Weight 243.00 lb Heart Rate 84 /min BP Systolic Sitting 120 mmHg BP Diastolic Sitting 78 mmHg Respiratory Rate 14 /min O2 % BldC Oximetry 97 % BMI (Body Mass Index) 34.9 kg/m2 Neck Circumference in inches 14.5 09/15/2017 12:22pm Weight 244.00 lb Heart Rate 86 /min BP Systolic Sitting 117 mmHg BP Diastolic Sitting 70 mmHg Respiratory Rate 16 /min Body Temperature 97.4 F Pain Level 0 O2 % BldC Oximetry 98 % 09/03/2017 8:57am Height 70 inches 5'10" Weight 242.00 lb Heart Rate 92 /min BP Systolic Sitting 116 mmHg Lue large cuff BP Diastolic Sitting 80 mmHg Lue large cuff Respiratory Rate 16 /min O2 % BldC Oximetry 97 % On Ra BMI (Body Mass Index) 34.7 kg/m2 09/02/2017 3:29pm Heart Rate 92 /min BP Systolic 120 mmHg BP Diastolic 72 mmHg Respiratory Rate 20 /min Pain Level 0 07/22/2017 1:57pm Heart Rate 76 /min BP Systolic 140 mmHg BP Diastolic 78 mmHg Respiratory Rate 14 /min Body Temperature 98.4 F 07/08/2017 3:28pm Height 70 inches 5'10" Weight 250.00 lb Heart Rate 78 /min Respiratory Rate 15 /min Body Temperature 98.3 F Pain Level 6 BMI (Body Mass Index) 35.9 kg/m2 06/12/2017 9:09am Height 70 inches 5'10" Weight 250.00 lb BP Systolic 120 mmHg BP Diastolic 82 mmHg Respiratory Rate 17 /min Body Temperature 97.3 F Pain Level 3 BMI (Body Mass Index) 35.9 kg/m2 05/29/2017 9:47am Height 70 inches 5'10" Heart Rate 89 /min BP Systolic 122 mmHg BP Diastolic 78 mmHg Respiratory Rate 16 /min Body Temperature 97.8 F Pain Level 2 05/14/2017 8:50am Height 70 inches 5'10" Weight 250.00 lb Heart Rate 84 /min BP Systolic Sitting 106 mmHg BP Diastolic Sitting 70 mmHg Respiratory Rate 14 /min O2 % BldC Oximetry 98 % BMI (Body Mass Index) 35.9 kg/m2 04/17/2017 9:56am Height 70 inches 5'10" Weight 248.00 lb BP Systolic 134 mmHg BP Diastolic 74 mmHg Respiratory Rate 18 /min Body Temperature 97.7 F Pain Level 6 BMI (Body Mass Index) 35.6 kg/m2 06/24/2016 3:45pm Height 69 inches 5'9" Weight 250.00 lb Heart Rate 99 /min BP Systolic Sitting 136 mmHg BP Diastolic Sitting 72 mmHg Respiratory Rate 14 /min O2 % BldC Oximetry 97 % BMI (Body Mass Index) 36.9 kg/m2 03/25/2016 1:41pm Height 70 inches 5'10" Weight 250.00 lb Heart Rate 75 /min BP Systolic Sitting 134 mmHg BP Diastolic Sitting 76 mmHg Respiratory Rate 14 /min O2 % BldC Oximetry 98 % BMI (Body Mass Index) 35.9 kg/m2 02/15/2016 10:32am Height 70 inches 5'10" Weight 250.00 lb Heart Rate 92 /min BP Systolic Sitting 138 mmHg BP Diastolic Sitting 84 mmHg Respiratory Rate 16 /min O2 % BldC Oximetry 98 % BMI (Body Mass Index) 35.9 kg/m2 01/15/2016 1:07pm Height 70 inches 5'10" Weight 250.00 lb Heart Rate 100 /min BP Systolic 140 mmHg BP Diastolic 88 mmHg Respiratory Rate 14 /min O2 % BldC Oximetry 98 % BMI (Body Mass Index) 35.9 kg/m2 11/13/2015 3:43pm Height 70 inches 5'10" Weight 245.00 lb Heart Rate 87 /min BP Systolic Sitting 132 mmHg BP Diastolic Sitting 78 mmHg Respiratory Rate 18 /min O2 % BldC Oximetry 97 % BMI (Body Mass Index) 35.1 kg/m2 09/28/2015 2:26pm Height 70 inches 5'10" Weight 245.00 lb Heart Rate 91 /min BP Systolic Sitting 128 mmHg BP Diastolic Sitting 69 mmHg Respiratory Rate 14 /min O2 % BldC Oximetry 97 % BMI (Body Mass Index) 35.1 kg/m2 08/08/2015 10:32am Height 70 inches 5'10" Weight 247.25 lb Heart Rate 87 /min BP Systolic 124 mmHg BP Diastolic 80 mmHg Respiratory Rate 14 /min O2 % BldC Oximetry 97 % BMI (Body Mass Index) 35.5 kg/m2 Neck Circumference in inches 14.5 Results Test Date Facility Test Result H/L Range Note Laboratory test 08/13/2018 [facility] Hemoglobin A1c 7.5 % High 4.0-5.[address] (Glyco HGB) [place] [address] [phone] TSH (Thyroid Stim Horm) 1.58 mcIU/mL N 0.34-5.60 Basic Metabolic Panel 08/13/2018 [facility] Sodium 139 mmol/L N 135-[address] [place] [address] [phone] Potassium 4.6 mmol/L N 3.5-5.0 Chloride 109 mmol/L N 101-111 Co2 Carbon Dioxide 22 mmol/L N 22-32 Anion Gap 8 mmol/L N 2-11 Glucose 137 mg/dL High 70-100 Blood Urea Nitrogen 26 mg/dL High 6-24 Creatinine 0.84 mg/dL N 0.51-0.95 BUN/Creatinine Ratio 31.0 High 8-20 Calcium 9.6 mg/dL N 8.6-10.3 Egfr Non- 70.7 >60 Egfr 85.5 >60 2 Laboratory test finding 05/12/2018 [facility] Glucose Random 249 Hemoglobin A1c 7.0 5-7 Laboratory test finding 02/10/2018 [facility] Glucose Random 102 Hemoglobin A1c 8.3 High 5-7 Laboratory test 06/25/2017 [facility] Point of Care 286 mg/dL High 70-100 [address] [place] [address] [phone] Laboratory test 06/25/2017 [facility] Point of Care 180 mg/dL High 70-100 [address] [place] [address] [phone] 1 Therapeutic target for the treatment of diabetes mellitus patients is <7% HBA1C, and in selective patients <6.0%. Please refer to [place] [employer] diabetic care guidelines for further information. 2 Because ethnic data is not always readily available, this report includes an eGFR for both -Americans and non- Americans. The National Kidney Disease Education Program (NKDEP) does not endorse the use of the MDRD equation for patients that are not between the ages of 18 and 70, are , have extremes of body size, muscle mass, or nutritional status, or are non- or non-. According to the National Kidney Foundation, irrespective of diagnosis, the stage of the disease is based on the level of kidney function: Stage Description GFR(mL/min/1.73 m(2)) 1 Kidney damage with normal or decreased GFR 90 2 Kidney damage with mild decrease in GFR 60-89 3 Moderate decrease in GFR 30-59 4 Severe decrease in GFR 15-29 5 Kidney failure <15 (or dialysis) 3 Music Coordinator: [id number] 4 Music Coordinator: [id number] Procedures Date Code Description Status 08/18/2018 72833 EKG Tracing & Interpretation Completed 07/08/2017 28623 Short Leg Cast Completed 06/25/2017 62719 Arthroscopy Ankle Debridement Extensive Completed 06/25/2017 26973 Arthroscopy Ankle Debridement Extensive Completed 06/25/2017 01481 Arthroscopy Ankle Debridement Extensive Completed 06/25/2017 13966 Arthoscopy Ankle Excision Osteochondral Defect Completed 06/25/2017 29479 Arthoscopy Ankle Excision Osteochondral Defect Completed 06/25/2017 48457 Arthoscopy Ankle Excision Osteochondral Defect Completed 06/25/2017 81790 Partial Excision Bone Tibia Completed 03/12/2016 41360 Polysomnography Sleep Staging 4+ Parameters W/Cpap Completed 09/03/2015 17885 Sleep Study Unattended,HRT Rate,Oxygen Sat,Resp Completed Effort/Airflow 11/30/2012 17582 Stress Test Completed Encounters Type Date Location Provider Dx Diagnosis Office Visit 05/12/2018 [place] [facility] and Jimbo Aguilar MD 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 E66.9 Obesity, unspecified Z68.34 Body mass index (BMI) 34.0-34.9, adult Office Visit 05/07/2018 [facility] And Stephanie G47.33 Obstructive sleep 11:30a [facility] Connelly, MYNOR, apnea (adult) [facility]- (pediatric) G47.00 Insomnia, unspecified Z68.34 Body mass index (BMI) 34.0-34.9, adult Office Visit 02/10/2018 2:00p [facility] and Jimbo Aguilar 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 E11.9 Type 2 diabetes mellitus without complications Z68.34 Body mass index (BMI) 34.0-34.9, adult Office Visit 09/09/2017 [facility] J96.00 Acute respiratory 10:59a Assoc,pc [facility] Doto, failure, unsp w Hospitalists BAIT TIER hypoxia or hypercapnia E11.65 Type 2 diabetes mellitus with hyperglycemia Office Visit 09/08/2017 [facility] J96.00 Acute respiratory 10:59a Assoc,pc [facility] Doto, failure, unsp w Hospitalists BAIT TIER hypoxia or hypercapnia E11.9 Type 2 diabetes mellitus without complications F41.9 Anxiety disorder, unspecified Office Visit 09/08/2017 3:13p Intensivists Lashon Bobo, R06.02 Shortness of MD breath R05 Cough G47.33 Obstructive sleep apnea (adult) (pediatric) Z57.2 Occupational exposure to dust Office Visit 09/07/2017 [facility] J96.00 Acute 10:59a Assoc,pc [place] respiratory Hospitalists failure, unsp w hypoxia or hypercapnia A41.9 Sepsis, unspecified organism R00.0 Tachycardia, unspecified D72.829 Elevated white blood cell count, unspecified E11.9 Type 2 diabetes mellitus without complications Office Visit 09/06/2017 1:14p [facility] J96.00 Acute respiratory Assoc,pc [place] failure, unsp w Hospitalists hypoxia or hypercapnia E11.9 Type 2 diabetes mellitus without complications F41.9 Anxiety disorder, unspecified Office Visit 09/03/2017 [facility] And Stephanie G47.33 Obstructive sleep 9:00a [facility] Connelly, RN, apnea (adult) [employer] PRINCIPAL CLERK TYPIST-BC (pediatric) J20.9 Acute bronchitis, unspecified E66.9 Obesity, unspecified Z68.34 Body mass index (BMI) 34.0-34.9, adult Office Visit 06/12/2017 Orthopedic Mauro Bhat, M93.272 Osteochondritis 9:00a Services Of quang Kaur ankle C.M.A. and joints of left foot M25.772 Osteophyte, left ankle Office Visit 05/29/2017 Laci Bhat M93.272 Osteochondritis 9:45a Services Of quang Kaur ankle C.M.A. and joints of left foot Office Visit 05/14/2017 Pul[facility] And Stephanie G47.33 Obstructive sleep 9:15a [facility] Connelly, apnea (adult) Of [facility] RN, PRINCIPAL CLERK TYPIST-BC (pediatric) G47.14 Hypersomnia due to medical condition E66.9 Obesity, unspecified Z68.35 Body mass index (BMI) 35.0-35.9, adult Office Visit 04/17/2017 Orthopedic Mauro Perlita, M76.822 Posterior tibial 9:30a Services Of MD ross, left C.M.A. 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, left ankle and foot Office Visit 06/24/2016 Pulmonology And Stephanie G47.33 Obstructive sleep 3:30p [facility] Connelly RN, apnea (adult) [facility] PRINCIPAL CLERK TYPIST-BC (pediatric) G47.00 Insomnia, unspecified G47.14 Hypersomnia due to medical condition Office Visit 03/25/2016 Pulmonology And Stephanie G47.33 Obstructive sleep 1:30p [facility] Connelly RN, apnea (adult) [facility] PRINCIPAL CLERK TYPIST-BC (pediatric) G47.00 Insomnia, unspecified G47.14 Hypersomnia due to medical condition E66.09 Other obesity due to excess calories Z68.35 Body mass index (BMI) 35.0-35.9, adult Office Visit 02/15/2016 Pulmonology And Stephanie G47.33 Obstructive sleep 10:30a [facility] Connelly RN, apnea (adult) [facility] PRINCIPAL CLERK TYPIST-BC (pediatric) G47.00 Insomnia, unspecified Office Visit 01/15/2016 Pulmonology And Stephanie G47.33 Obstructive sleep 1:00p [facility] Connelly RN, apnea (adult) [facility] PRINCIPAL CLERK TYPIST-BC (pediatric) G47.14 Hypersomnia due to medical condition G47.00 Insomnia, unspecified E66.09 Other obesity due to excess calories Office Visit 11/13/2015 Pulmonology And Stephanie G47.33 Obstructive sleep 3:30p [facility] Connelly RN, apnea (adult) [facility] PRINCIPAL CLERK TYPIST-BC (pediatric) G47.14 Hypersomnia due to medical condition E66.09 Other obesity due to excess calories Z68.35 Body mass index (BMI) 35.0-35.9, adult Office Visit 09/28/2015 Pulmonology And Stephanie G47.33 Obstructive sleep 2:30p [facility] Connelly, RN, apnea (adult) [facility] PRINCIPAL CLERK TYPIST-BC (pediatric) E66.09 Other obesity due to excess calories Office Visit 08/08/2015 10:15a Pulmonology And Sleep Lashon Bobo, R06.83 Snoring Services [facility] E66.09 Other obesity due to excess calories Plan of Treatment Future Appointment(s):12/15/2018 1:20 pm - Jimbo Aguilar MD at [place] [facility]11/12/2018 10:45 am - Stephanie Connelly DNP, RN, PRINCIPAL CLERK TYPIST-BC at [facility] And [facility]02/10/2018 - Jimbo Aguilar MDZ79.4 senior care (current) use of jvamgpnW39.21 Type 2 diabetes mellitus with diabetic fosihadfxrhL69.34 Body mass index (BMI) 34.0-34.9, adult
--- OUTSIDE RECORDS SUMMARY | 2018-09-08 07:47 | XMS REPORT | Continuity of Care Document ---
:1965 External Reference #:[id number] Author Name BoltonDevinn Care Team Providers Name Role Phone Ismael Pfeiffer MD Primary Care Physician Unavailable Payers Date Identification Numbers Payment Provider Subscriber Policy Number: [id number] [employer] Eddie Michelle Group Number: [id number] [address] PayID: [id number] [place] [address] Expires: 2016 Policy Number: [id number] [facility] Mell Liz PayID: [id number] [address] [place] [address] Problems Active Problems Provider Date Difficulty breathing Lashon Bobo MD Onset: 08/08/2015 Obesity Lashon Bobo MD Onset: 08/08/2015 Obstructive sleep apnea syndrome Stephanie Connelly DNP, RN, STATE FEDERAL RELATIONS DEPUTY DIRECTOR-BC Onset: 10/2015 Insomnia Stephanie Connelly DNP RN, STATE FEDERAL RELATIONS DEPUTY DIRECTOR-BC Onset: 01/15/2016 Note: maintenance Osteochondritis dissecans Mauro [...] Marital Status Lives With Occupation 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, [employer] Tobacco Use Start: Unknown Never Smoked Cigarettes Smoking Status Reviewed: 08/13/18 Never Smoked Cigarettes ETOH Use Occasionally consumes alcohol Tobacco Use Start: Unknown Patient has never smoked Recreational Drug Use Denies Drug Use Exercise Type/Frequency Exercises rarely Allergies, Adverse Reactions, Alerts Description No Known Drug Allergies Medications Active Medications SIG Qnty Indications Ordering Date Provider Pen [place] use 1 pen needle 200units Jimbo Aguilar MD 07/14/2018 32G X 4 mm 4 times/day with Misc insulin Levemir Flextouch 50 units SQ once 15ml E11.21 Jimbo Aguilar MD 07/12/2018 daily 100Unit/ML Solution Pen-Inject Jardiance 10mg by mouth 90tabs E11.9 Jimbo Aguilar MD 02/10/2018 10mg Tablets daily Zolpidem Tartrate 1 tab at at 14tabs Stephanie Connelly, 08/05/2016 5mg bedtime x 4-7 DNP, RN, STATE FEDERAL RELATIONS DEPUTY DIRECTOR-BC Tablets nights, july repeat x 1 for [...] - 1.75mg awaken and unabe KIN RN, STATE FEDERAL RELATIONS DEPUTY DIRECTOR-BC 08/05/2016 Tablets Sub to fall asleep, as needed with 4 hours left to sleep Intermezzo 1 po if awaken in 10tabs G47.33 Stephanie Connelly, 01/15/2016 - 1.75mg the night with KIN RN, STATE FEDERAL RELATIONS DEPUTY DIRECTOR-BC 01/15/2016 Tablets Sub inability to fall asleep [...] needed Vital Signs Date Vital Result Comment 08/13/2018 11:58am Height 70 inches 5'10" Weight [...] Test Result H/L Range Note Laboratory test finding 05/12/2018 [facility] In House Glucose Random 249 Hemoglobin A1c 7.0 5-7 Laboratory test finding 02/10/2018 [facility] In House Glucose Random 102 Hemoglobin A1c 8.3 High 5-7 Laboratory test 06/25/2017 [facility] Point of Care 286 mg/dL High 70-100 [address] [place] [address] [phone] Laboratory test 06/25/2017 [facility] Point of Care 180 mg/dL High 70-100 [address] Glucose [place], [place] [id number] [phone] 1 Medical Communication Specialist: [id number] Medical Communication Specialist: [id number] Procedures Date Code Description Status 07/08/2017 14480 Short Leg Cast Completed 06/25/2017 89958 Arthroscopy Ankle Debridement Extensive Completed 06/25/2017 79912 Arthroscopy Ankle Debridement Extensive Completed 06/25/2017 64504 Arthroscopy Ankle Debridement Extensive Completed 06/25/2017 81795 Arthoscopy Ankle Excision Osteochondral Defect Completed 06/25/2017 97767 Arthoscopy Ankle Excision Osteochondral Defect Completed 06/25/2017 40618 Arthoscopy Ankle Excision Osteochondral Defect Completed 06/25/2017 50511 Partial Excision Bone Tibia Completed 03/12/2016 67648 Polysomnography Sleep Staging 4+ Parameters W/Cpap Completed 09/03/2015 04941 Sleep Study Unattended,HRT Rate,Oxygen Sat,Resp Completed Effort/Airflow 11/30/2012 68715 Stress Test Completed Encounters Type Date Location Provider Dx Diagnosis Office Visit 05/12/2018 [facility] Jimbo Aguilar MD 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 E66.9 Obesity, unspecified Z68.34 Body mass index (BMI) 34.0-34.9, adult Office Visit 05/07/2018 [facility] And Stephanie G47.33 Obstructive sleep 11:30a Sleep Services Of KIN Connelly, MYNOR, apnea (adult) [facility]- (pediatric) G47.00 Insomnia, unspecified Z68.34 Body mass index (BMI) 34.0-34.9, adult Office Visit 02/10/2018 2:00p [facility] Jimbo Aguilar, Z79.4 [facility]DC [facility] (current) use of insulin E11.21 Type 2 diabetes mellitus with diabetic nephropathy Z68.34 Body mass index (BMI) 34.0-34.9, adult Office Visit 11/11/2017 [facility] And Stephanie G47.33 Obstructive sleep 9:30a [facility] KIN Connelly RN, apnea (adult) [facility] STATE FEDERAL RELATIONS DEPUTY DIRECTOR- (pediatric) G47.00 Insomnia, unspecified Z68.35 Body mass index (BMI) 35.0-35.9, adult Office Visit 11/02/2017 Orthopedic Mauro Perlita, M93.272 Osteochondritis 11:30a Services Of MD hurst, l ankle C.M.A. and joints of left foot Office Visit 09/21/2017 Pulmonology And Lashon R06.02 Shortness of breath 8:30a Sleep Services MD Jeramie [facility] G47.33 Obstructive sleep apnea (adult) (pediatric) E66.09 Other obesity due to excess calories Z68.34 Body mass index (BMI) 34.0-34.9, adult Office Visit 09/15/2017 11:30a [facility] Connections Dario Hurley, R06.02 Shortness of [facility] breath G47.33 Obstructive sleep apnea (adult) (pediatric) Z79.4 [facility] (current) use of insulin E11.9 Type 2 diabetes mellitus without complications Z68.34 Body mass index (BMI) 34.0-34.9, adult Office Visit 09/09/2017 [facility] J96.00 Acute respiratory 10:59a Assoc,pc Diogenes Doto, failure, unsp w 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 or 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 E11.65 Type 2 diabetes mellitus with hyperglycemia Office Visit 09/08/2017 [facility] J96.00 Acute respiratory 10:59a Assoc,pc Diogenes Koehler, failure, unsp w 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 or hypercapnia E11.9 Type 2 diabetes mellitus without complications F41.9 Anxiety disorder, unspecified Office Visit 09/08/2017 3:13p Intensivists Lashon Bobo, R06.02 Shortness of MD breath R05 Cough G47.33 Obstructive sleep apnea (adult) (pediatric) Z57.2 Occupational exposure to dust Office Visit 09/07/2017 [facility] J96.00 Acute 10:59a Assoc,pc Marlon PA respiratory Hospitalists failure, unsp w hypoxia or hypercapnia A41.9 Sepsis, unspecified organism R00.0 Tachycardia, unspecified D72.829 Elevated white blood cell count, unspecified E11.9 Type 2 diabetes mellitus without complications Office Visit 09/06/2017 1:14p [facility] J96.00 Acute respiratory Assoc,BRYANNA Nation failure, unsp w Hospitalists hypoxia or hypercapnia E11.9 Type 2 diabetes mellitus without complications F41.9 Anxiety disorder, unspecified Office Visit 09/03/2017 [facility] And Stephanie G47.33 Obstructive sleep 9:00a Sleep Services Of KIN Connelly RN, apnea (adult) [facility] (pediatric) J20.9 Acute bronchitis, unspecified E66.9 Obesity, unspecified Z68.34 Body mass index (BMI) 34.0-34.9, adult Office Visit 06/12/2017 Orthopedic Mauro Bhat, M93.272 Osteochondritis 9:00a Services Of quang Kaur ankle C.M.A. and joints of left foot M25.772 Osteophyte, left ankle Office Visit 05/29/2017 Orthopedic Mauro Bhat, M93.272 Osteochondritis 9:45a Services Of quang Kaur ankle C.M.A. and joints of left foot Office Visit 05/14/2017 [facility]ology And Stephanie G47.33 Obstructive sleep 9:15a Sleep Services KIN Connelly, apnea (adult) Of Nini RNANTHONY-[facility] (pediatric) G47.14 Hypersomnia due to medical condition E66.9 Obesity, unspecified Z68.35 Body mass index (BMI) 35.0-35.9, adult Office Visit 04/17/2017 Orthopedic Mauro Perlita, M76.822 Posterior tibial 9:30a Services Of MD ross, left C.M.A. 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, left ankle and foot Office Visit 06/24/2016 Pul[facility]ology And Stephanie G47.33 Obstructive sleep 3:30p Sleep [facility] Of KIN Connelly RN, apnea (adult) [facility] STATE FEDERAL RELATIONS DEPUTY DIRECTOR-BC (pediatric) G47.00 Insomnia, unspecified G47.14 Hypersomnia due to medical condition Office Visit 03/25/2016 [facility] And Stephanie G47.33 Obstructive sleep 1:30p [facility] KIN Connelly RN, apnea (adult) [facility] STATE FEDERAL RELATIONS DEPUTY DIRECTOR-BC (pediatric) G47.00 Insomnia, unspecified G47.14 Hypersomnia due to medical condition E66.09 Other obesity due to excess calories Z68.35 Body mass index (BMI) 35.0-35.9, adult Office Visit 02/15/2016 [facility] And Stephanie G47.33 Obstructive sleep 10:30a [facility] Of KIN Connelly RN, apnea (adult) [facility] STATE FEDERAL RELATIONS DEPUTY DIRECTOR-BC (pediatric) G47.00 Insomnia, unspecified Office Visit 01/15/2016 Pul[facility]ology And Stephanie G47.33 Obstructive sleep 1:00p Sleep [facility] Of KIN Connelly RN, apnea (adult) [facility] STATE FEDERAL RELATIONS DEPUTY DIRECTOR-BC (pediatric) G47.14 Hypersomnia due to medical condition G47.00 Insomnia, unspecified E66.09 Other obesity due to excess calories Office Visit 11/13/2015 Pul[facility]ology And Stephanie G47.33 Obstructive sleep 3:30p Sleep Services Of KIN Connelly RN, apnea (adult) [facility] STATE FEDERAL RELATIONS DEPUTY DIRECTOR-BC (pediatric) G47.14 Hypersomnia due to medical condition E66.09 Other obesity due to excess calories Z68.35 Body mass index (BMI) 35.0-35.9, adult Office Visit 09/28/2015 Pul[facility]ology And Stephanie G47.33 Obstructive sleep 2:30p Sleep Services Of KIN Connelly RN, apnea (adult) [facility] STATE FEDERAL RELATIONS DEPUTY DIRECTOR-BC (pediatric) E66.09 Other obesity due to excess calories Office Visit 08/08/2015 10:15a Pulmonology And Sleep Lashon Bobo, R06.83 Snoring [facility] E66.09 Other obesity due to excess calories Plan of Treatment Future Appointment(s):12/15/2018 1:20 pm - Jimob Aguilar MD at [place] [facility]08/18/2018 2:00 pm - Forrest Rhoades DO FACC at [facility]11/12/2018 10:45 am - Stephanie Connelly DNP, RN, STATE FEDERAL RELATIONS DEPUTY DIRECTOR-BC at [facility]08/13/2018 - Jimbo Aguilar MDE11.21 Type 2 diabetes mellitus with diabetic nephropathyInstructions:1. Stop Jardiance 2-3 days prior to surgery. 2. Your fasting blood glucose goal is less than 140. 3.Your blood glucose goals at other times is less than 200. 4. If blood glucose higher than above, restart Jardiance + metformin. 5. Return in 4 months. 6. Blood tests today.E66.9 Obesity, unspecified
--- OUTSIDE RECORDS SUMMARY | 2018-09-08 07:47 | XMS REPORT | Continuity of Care Document ---
:1965 External Reference #:[id number] Author Name Debbie Cornelius Care Team Providers Name Role Phone Ismael Pfeiffer MD Primary Care Physician Unavailable Payers Date Identification Numbers Payment Provider Subscriber Policy Number: [id number] [employer] Eddie Michelle Group Number: [id number] [address] PayID: [id number] [place] [address] Expires: 2016 Policy Number: [id number] [facility] Mell Liz PayID: [id number] [address] [place] [address] Problems Active Problems Provider Date Difficulty breathing Lashon Bobo MD Onset: 08/08/2015 Obesity Lashon Bobo MD Onset: 08/08/2015 Obstructive sleep apnea syndrome Stephanie Connelly DNP, RN, ANTHONY-BC Onset: 10/2015 Insomnia Stephanie Connelly DNP RN, LOCAL FLATBED DRIVER-BC Onset: 01/15/2016 Note: maintenance Osteochondritis dissecans Mauro [...] Marital Status 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 With 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 Tobacco Use Start: Unknown Never Smoked Cigarettes Smoking Status Reviewed: 08/18/18 Never Smoked Cigarettes ETOH Use Occasionally consumes alcohol Tobacco Use Start: Unknown Patient has never smoked Recreational Drug Use Denies Drug Use Exercise Type/Frequency Exercises rarely Allergies, Adverse Reactions, Alerts Description No Known Drug Allergies Medications Active Medications SIG Qnty Indications Ordering Date Provider Pen [place] use 1 pen needle 200units Jimbo Aguilar MD 07/14/2018 32G X 4 mm 4 times/day with Misc insulin Levemir Flextouch 50 units SQ once 15ml E11.21 Jimbo Aguilar MD 07/12/2018 daily 100Unit/ML Solution Pen-Inject Jardiance 10mg by mouth 90tabs E11.9 Jimbo Aguilar MD 02/10/2018 10mg Tablets daily Zolpidem Tartrate 1 tab at at 14tabs Stephanie Connelly, 08/05/2016 5mg bedtime x 4-7 DNP, RN, LOCAL FLATBED DRIVER-BC Tablets nights, july repeat x 1 for [...] Oxycodone HCL 1 tabs by mouth 20tabs Maruo Bhat, 06/25/2017 - 5mg every 4-6 hours as 09/02/2017 Tablets needed Glipizide 1 tab by Unknown 06/23/2016 - 10mg twicedaily 09/09/2017 Tablets Intermezzo 1 by mouth if 10tabs G47.33 Stephanie Connelly, 01/15/2016 - 1.75mg awaken and unabe KIN RN, LOCAL FLATBED DRIVER-BC 08/05/2016 Tablets Sub to fall asleep, as needed with 4 hours left to sleep Intermezzo 1 po if awaken in 10tabs G47.33 Stephanie Connelly, 01/15/2016 - 1.75mg the night with KIN RN, LOCAL FLATBED DRIVER-BC 01/15/2016 Tablets Sub inability to fall asleep [...] Result H/L Range Note Laboratory test 08/13/2018 [facility] Hemoglobin A1c 7.5 % High 4.0-5.[address] (Glyco HGB) [place] [address] [phone] TSH (Thyroid Stim Horm) 1.58 mcIU/mL N 0.34-5.60 Basic Metabolic Panel 08/13/2018 [facility] Sodium 139 mmol/L N 135-[address] [place] [address] [phone] Potassium 4.6 mmol/L N 3.5-5.0 Chloride 109 mmol/L N 101-111 Co2 Carbon Dioxide 22 mmol/L N 22-32 Anion Gap 8 mmol/L N 2-11 Glucose 137 mg/dL High 70-100 Blood Urea Nitrogen 26 mg/dL High 6-24 Creatinine 0.84 mg/dL N 0.51-0.95 BUN/Creatinine Ratio 31.0 High 8-20 Calcium 9.6 mg/dL N 8.6-10.3 Egfr Non- 70.7 >60 Egfr 85.5 >60 2 Laboratory test finding 05/12/2018 [facility] In House Glucose Random 249 Hemoglobin A1c 7.0 5-7 Laboratory test finding 02/10/2018 [facility] House Glucose Random 102 Hemoglobin A1c 8.3 High 5-7 Laboratory test 06/25/2017 [facility] Point of Care 286 mg/dL High 70-100 [address] [address] [phone] Laboratory test 06/25/2017 [facility] Point of Care 180 mg/dL High 70-100 [address] [address] [phone] 1 Therapeutic target for the treatment of diabetes mellitus patients is <7% HBA1C, and in selective patients <6.0%. Please refer to [place] [employer] diabetic care guidelines for further [...] 5 Kidney failure <15 (or dialysis) 3 Loan Officer Assistant: [id number] Loan Officer Assistant: [id number] Procedures Date Code Description Status 08/18/2018 34245 EKG Tracing & Interpretation Completed 07/08/2017 06750 Short Leg Cast Completed 06/25/2017 37765 Arthroscopy Ankle Debridement Extensive Completed 06/25/2017 70219 Arthroscopy Ankle Debridement Extensive Completed 06/25/2017 02608 Arthroscopy Ankle Debridement Extensive Completed 06/25/2017 22882 Arthoscopy Ankle Excision Osteochondral Defect Completed 06/25/2017 71716 Arthoscopy Ankle Excision Osteochondral Defect Completed 06/25/2017 95655 Arthoscopy Ankle Excision Osteochondral Defect Completed 06/25/2017 43036 Partial Excision Bone Tibia Completed 03/12/2016 46266 Polysomnography Sleep Staging 4+ Parameters W/Cpap Completed 09/03/2015 05868 Sleep Study Unattended,HRT Rate,Oxygen Sat,Resp Completed Effort/Airflow 11/30/2012 74115 Stress Test Completed Encounters Type Date Location Provider Dx Diagnosis Office Visit 05/12/2018 [facility] and Jimbo Aguilar MD E11.21 Type 2 diabetes 2:40p [facility]ocr[facility]ology of [facility] mellitus with diabetic nephropathy E66.9 Obesity, unspecified Z68.34 Body mass index (BMI) 34.0-34.9, adult Office Visit 05/07/2018 Pulmonology And Stephanie G47.33 Obstructive sleep 11:30a Sleep Services Of KIN Connelly RN, apnea (adult) [facility]- (pediatric) G47.00 Insomnia, unspecified Z68.34 Body mass index (BMI) 34.0-34.9, adult Office Visit 02/10/2018 2:00p [facility] and Jimbo Aguilar Z79.4 [facility] (current) use of insulin E11.21 Type 2 diabetes mellitus with diabetic nephropathy Z68.34 Body mass index (BMI) 34.0-34.9, adult Office Visit 11/11/2017 Pulmonology And Stephanie G47.33 Obstructive sleep 9:30a Sleep Services Of KIN Connelly RN, apnea (adult) [facility]- (pediatric) G47.00 Insomnia, unspecified Z68.35 Body mass index (BMI) 35.0-35.9, adult Office Visit 11/02/2017 Orthopedic Mauro Bhat, M93.272 Osteochondritis 11:30a Services Of MD hurst, l ankle C.M.A. 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 E11.9 Type 2 diabetes mellitus without complications Z68.34 Body mass index (BMI) 34.0-34.9, adult Office Visit 09/09/2017 [facility] J96.00 Acute respiratory 10:59a Assoc,pc [facility] Doto, failure, unsp w 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 E11.65 Type 2 diabetes mellitus with hyperglycemia Office Visit 09/08/2017 [facility] J96.00 Acute respiratory 10:59a Assoc,pc [facility] Doto, failure, unsp w 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 E11.9 Type 2 diabetes mellitus without complications F41.9 Anxiety disorder, unspecified Office Visit 09/08/2017 3:13p Intensivists Lashon Bobo, R06.02 Shortness of MD breath R05 Cough G47.33 Obstructive sleep apnea (adult) (pediatric) Z57.2 Occupational exposure to dust Office Visit 09/07/2017 [facility] J96.00 Acute 10:59a Assoc,pc Marlon PA respiratory Hospitalists failure, unsp w hypoxia or hypercapnia A41.9 Sepsis, unspecified organism R00.0 Tachycardia, unspecified D72.829 Elevated white blood cell count, unspecified E11.9 Type 2 diabetes mellitus without complications Office Visit 09/06/2017 1:14p [facility] J96.00 Acute respiratory Assoc,pc Valentin PA failure, unsp w Hospitalists hypoxia or hypercapnia E11.9 Type 2 diabetes mellitus without complications F41.9 Anxiety disorder, unspecified Office Visit 09/03/2017 Pulmonology And Stephanie G47.33 Obstructive sleep 9:00a Sleep Services Of KIN Connelly, RN, apnea (adult) [employer] LOCAL FLATBED DRIVER-BC (pediatric) J20.9 Acute bronchitis, unspecified E66.9 Obesity, [...] Sleep Services KIN Connelly, apnea (adult) [facility] RN, LOCAL FLATBED DRIVER-BC (pediatric) G47.14 Hypersomnia due to medical condition E66.9 Obesity, unspecified Z68.35 Body mass index (BMI) 35.0-35.9, adult Office Visit 04/17/2017 Orthopedic Mauro Perlita, M76.822 Posterior tibial 9:30a Services Of MD ross, left C.M.A. 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, left ankle and foot Office Visit 06/24/2016 Pulmonology And Stephanie G47.33 Obstructive sleep 3:30p Sleep Services Of KIN Connelly RN, apnea (adult) [facility] LOCAL FLATBED DRIVER-BC (pediatric) G47.00 Insomnia, unspecified G47.14 Hypersomnia due to medical condition Office Visit 03/25/2016 Pulmonology And Stephanie G47.33 Obstructive sleep 1:30p Sleep Services Of KIN Connelly RN, apnea (adult) [facility] LOCAL FLATBED DRIVER-BC (pediatric) G47.00 Insomnia, unspecified G47.14 Hypersomnia due to medical condition E66.09 Other obesity due to excess calories Z68.35 Body mass index (BMI) 35.0-35.9, adult Office Visit 02/15/2016 Pulmonology And Stephanie G47.33 Obstructive sleep 10:30a Sleep Services Of KIN Connelly RN, apnea (adult) [facility] LOCAL FLATBED DRIVER-BC (pediatric) G47.00 Insomnia, unspecified Office Visit 01/15/2016 Pulmonology And Stephanie G47.33 Obstructive sleep 1:00p Sleep Services Of KIN Connelly RN, apnea (adult) [facility] LOCAL FLATBED DRIVER-BC (pediatric) G47.14 Hypersomnia due to medical condition G47.00 Insomnia, unspecified E66.09 Other obesity due to excess calories Office Visit 11/13/2015 Pulmonology And Stephanie G47.33 Obstructive sleep 3:30p Sleep Services Of KIN Connelly RN, apnea (adult) [facility] LOCAL FLATBED DRIVER-BC (pediatric) G47.14 Hypersomnia due to medical condition E66.09 Other obesity due to excess calories Z68.35 Body mass index (BMI) 35.0-35.9, adult Office Visit 09/28/2015 Pulmonology And Stephanie G47.33 Obstructive sleep 2:30p Sleep Services Of KIN Connelly, RN, apnea (adult) [facility] LOCAL FLATBED DRIVER-BC (pediatric) E66.09 Other obesity due to excess calories Office Visit 08/08/2015 10:15a Pulmonology And Sleep Lashon Bobo, R06.83 Snoring Services [facility] E66.09 Other obesity due to excess calories Plan of Treatment Future Appointment(s):12/15/2018 1:20 pm - Jimbo Aguilar MD at [facility] [facility]11/12/2018 10:45 am - Stephanie Connelly DNP, RN, LOCAL FLATBED DRIVER-BC at [facility]08/18/2018 - Forrest Rhoades DO [id number] Encounter for preprocedural cardiovascular examination
[2018-09-08] MEDS ORDERED: ceFAZolin 1 GM ADVAN(*) 1 GM ADDV.VIAL IVPB ONE (08:35)
[2018-09-08] MEDS ORDERED: Heparin VIAL(*) 5000 UNITS/ML VIAL (FIVE THOUSAND) ONE (08:35)
[2018-09-08] MEDS ORDERED: ceFAZolin 2 GM in NS PREMIX(*) 2 GM/100 ML BAG IVPB ONE (08:35)
[2018-09-08] MEDS ORDERED: fentaNYL* 50 MCG/ML 2 ML VIAL (100 MCG VIAL) ONE ×3 (08:36→12:31)
[2018-09-08] MEDS ORDERED: Midazolam* 1 MG/ML 2 ML VIAL (2 MG) ONE (08:37)
[2018-09-08] MEDS ORDERED: Buffered Lidocaine 1% SYRIN* 1 ML/SYRINGE INTRADERM ONE (09:14)
[2018-09-08] MEDS ORDERED: Bupivacaine 0.25% EPI 200,000* 30 ML SDV ONE ×2 (09:34→10:30)
[2018-09-08] MEDS ORDERED: Propofol* 10 MG/ML 20 ML BTL ONE (09:51)
[2018-09-08] MEDS ORDERED: Ondansetron INJ* 2 MG/ML VIAL ONE ×2 (09:51→11:50)
[2018-09-08] MEDS ORDERED: Dexamethasone IV* 4 MG/ML 1 ML (4 MG) ONE (09:51)
[2018-09-08] MEDS ORDERED: Rocuronium* 10 MG/ML VIAL ONE ×2 (09:52→10:18)
[2018-09-08] MEDS ORDERED: Metoprolol Tartrate IV* 1 MG/ML 5 ML VIAL ONE (10:20)
[2018-09-08] MEDS ORDERED: EPHEDrine (Pressors)* 50 MG/ML VIAL ONE (10:34)
[2018-09-08] MEDS ORDERED: Hetastarch 6% in NS* 500 ML IV ONE (10:35)
[2018-09-08] MEDS ORDERED: fentaNYL* 50 MCG/ML 2 ML VIAL (100 MCG VIAL) IV PRN (10:48)
[2018-09-08] MEDS ORDERED: Naloxone* 0.4 MG/ML 1 ML VIAL IV PRN (10:48)
[2018-09-08] MEDS ORDERED: Ondansetron INJ* 2 MG/ML VIAL IV PRN (10:53)
[2018-09-08] MEDS ORDERED: Levalbuterol 0.63MG/3ML NEB* UNIT OF USE INH PRN (10:53)
[2018-09-08] MEDS ORDERED: DiMENhydriNATE IV* 50 MG/ML VIAL IV PUSH PRN (10:53)
[2018-09-08] MEDS ORDERED: diPHENhydraMINE IV* 50 MG/ML 1 ml VIAL (BENADRYL) IV PRN (10:53)
[2018-09-08] MEDS: Ondansetron INJ* 2 MG/ML VIAL IV PRN (11:00)
[2018-09-08] MEDS ORDERED: Acetaminophen IV 1GM/100ML * 100 ML ONE (11:11)
[2018-09-08] MEDS ORDERED: Ketorolac INJ* 30 MG/ML 1 ML VIAL ONE (11:14)
[2018-09-08] MEDS: Ketorolac INJ* 30 MG/ML 1 ML VIAL IV PRN ×2 (11:30→18:25)
[2018-09-08] MEDS ORDERED: diPHENhydraMINE IV* 50 MG/ML 1 ml VIAL (BENADRYL) SLOW PUSH PRN (11:31)
[2018-09-08] MEDS ORDERED: Neostigmine Methylsulfate* 1 MG/ML 10 ML VIAL (1 mg/ml) ONE (11:40)
[2018-09-08] MEDS ORDERED: HYDROmorphone INJ* 0.5 MG/0.5 ML SYRINGE IV SLOW PU PRN (11:40)
[2018-09-08] MEDS ORDERED: Glycopyrrolate IV* 0.2 MG/ML 1 ML VIAL ONE (11:40)
[2018-09-08] MEDS ORDERED: Dextrose 50% Syringe 50 ML* 25 GM/50 ML SYRINGE IV PUSH PRN (11:41)
[2018-09-08] MEDS ORDERED: Acetaminophen SUPP* 650 MG SUPP PR PRN (11:46)
[2018-09-08] MEDS ORDERED: DiMENhydriNATE IV* 50 MG/ML VIAL ONE (11:50)
[2018-09-08] MEDS: fentaNYL* 50 MCG/ML 2 ML VIAL (100 MCG VIAL) IV PRN ×2 (12:33→12:47)
[2018-09-08] MEDS: Lactated Ringers 1000 ML Bag* 1,000 ML IV SCH ×2 (13:40→21:56)
[2018-09-08] MEDS ORDERED: HYDROmorphone INJ1* 1 MG/ML SYRINGE ONE (13:50)
[2018-09-08] MEDS: Insulin LISPRO* 1 UNITS UNIT SUBCUT SCH ×3 (13:53→23:42)
[2018-09-08] MEDS: Heparin VIAL(*) 5000 UNITS/ML VIAL (FIVE THOUSAND) SUBCUT SCH ×2 (14:22→22:03)
[2018-09-08] MEDS: HYDROmorphone INJ1* 1 MG/ML SYRINGE IV SLOW PU PRN ×2 (19:09→22:03)
[2018-09-08 20:34] LABS: ABS Lymphocytes 0.9 10^3/ul (1.0-4.8); ABS Monocytes 0.3 10^3/ul (0-0.8); Hematocrit 36 % (35-47); Hemoglobin 11.6 g/dL (12.0-16.0); Lymphocyte % 10.2 %; Mean Corpuscular HGB Conc 33 g/dL (31-36); Mean Corpuscular Hemoglobin 27 pg (27-31); Mean Corpuscular Volume 81 fL (80-97); Mean Platelet Volume 6.3 fL (7.4-10.4); Nucleated Red Blood Cells % 0.1; Platelet Count 394 10^3/uL (150-450); Red Blood Count 4.36 10^6 /uL (3.70-4.87); Red Cell Distribution Width 16 % (10-15); White Blood Count 9.2 10^3/uL (3.5-10.8)
[2018-09-08 20:51] LABS: BUN/Creatinine Ratio 22.5 (8-20); Calcium 8.4 mg/dL (8.6-10.3); EGFR Non-African American 66.1 (>60); Magnesium 1.9 mg/dL (1.9-2.7); Potassium 4.6 mmol/L (3.5-5.0)
[2018-09-08] MEDS: Famotidine IV* 10 MG/ML 2 ML (20 mg) IV SLOW PU SCH (22:02)
[2018-09-09] MEDS: HYDROmorphone INJ1* 1 MG/ML SYRINGE IV SLOW PU PRN ×5 (00:57→15:51)
[2018-09-09] MEDS: Ketorolac INJ* 30 MG/ML 1 ML VIAL IV PRN ×3 (00:57→19:48)
[2018-09-09] MEDS: Lactated Ringers 1000 ML Bag* 1,000 ML IV SCH (06:03)
[2018-09-09] MEDS: Insulin LISPRO* 1 UNITS UNIT SUBCUT SCH ×4 (06:09→23:59)
[2018-09-09] MEDS: Heparin VIAL(*) 5000 UNITS/ML VIAL (FIVE THOUSAND) SUBCUT SCH ×3 (06:16→22:06)
[2018-09-09] MEDS: Famotidine IV* 10 MG/ML 2 ML (20 mg) IV SLOW PU SCH ×2 (08:23→22:02)
[2018-09-09] MEDS ORDERED: HYDROcodone/ACET. 7.5/325 LIQ* 15 ML UDC PO PRN (11:19)
[2018-09-09] MEDS ORDERED: Acetaminophen ADULT LIQ* 650 MG/20.3 ML UDC PO PRN (11:19)
--- NOTE | 2018-09-09 11:26 | OP ---
CC: Primary care doctor; [facility] OPERATIVE REPORT: DATE OF OPERATION: 09/08/18 DATE OF : 63 SURGEON: Forrest Lincoln MD OUTPATIENT SCHEDULER: Lupe Santos NP ANESTHESIOLOGIST: Dr. Mccoy ANESTHESIA: General anesthesia. PRE-OP DIAGNOSES: 1. Clinically severe obesity. 2. Type 2 diabetes. 3. Obstructive sleep apnea. POST-OP DIAGNOSES: 1. Clinically severe obesity. 2. Type 2 diabetes. 3. Obstructive sleep apnea. OPERATIVE PROCEDURE: Laparoscopic sleeve gastrectomy. ESTIMATED BLOOD LOSS: Minimal blood loss. FLUIDS: Crystalloid fluid given, please see report. SPECIMENS: Portion of stomach. DRAINS: None. COUNTS: Lap pad count and instrument count correct at the end of procedure. DESCRIPTION OF PROCEDURE: Ms. Liz was identified in the preoperative area, she was marked, consent was signed. I discussed the case again with her and her family members. She was taken to the operat ing room and placed on the operating room table in supine position. Preoperative antibiotics were gi susie. Sequential compression devices were placed on bilateral lower extremities. General anesthesia was induced. The patient's abdomen was prepped and draped in a standard surgical fashion and the dariel e out was performed. Folds of the umbilicus were elevated anteriorly and a Veress needle inserted into the the abdominal c avity, which was then allowed to insufflate to a pressure of 15 mmHg. The patient tolerated the insu fflation well. Hornick between the umbilicus and xiphoid just left of midline, a 12 mm trocar was ins erted with an Optiview. Laparoscope was inserted through this and there was no evidence of injury fro m the trocar insertion or from the Veress needle, which was then removed. Additional trocars were then placed in the following position. Two 5 mm in the left upper quadrant. Review of the abdomen showed an enlarged liver and my next thought was to see if we could appropriate ly retract it anteriorly. Therefore, the patient was placed in a steep reverse Trendelenburg and a s ubxiphoid incision was made and Brian retractor was inserted through this and the liver was retra cted anteriorly to the right. This did expose the gastroesophageal fat pad and the proximal stomach and I felt comfortable continuing with the surgery and then an additional 12 mm trocar was inserted i n the right upper quadrant. Dissection was carried out at the angle of His, taking the fat pad and retracting towards the right l ower quadrant. Blunt and sharp dissection were utilized to expose the left crura and the muscular fi bres of the crura, but there was no bleeding encountered. Next, we identified the pylorus and approximately 5 cm proximal to this a retrogastric window was mad e and we took the vasculature of the greater curvature with a LigaSure device right up to the angle o f His where we made our previous dissection. Posterior attachments were similarly taken until the st omach could be fully rotated on its axis. Next, the sleeve stomach was created using 60 mm purple VEDA stapling devices starting at the antrum a nd extending towards the incisura. Prior firing this 4 different bougie was inserted by the anesthes iologist into the distal stomach. We then stayed tight to the bougie on additional loads until we go t to the proximal stomach where we flared it out, but were sure not to take portion of the fat pad, which was dissected free. Next, the bougie was removed. The staple line was intact without any unincorporated margaret and ther e was no twisting or corkscrewing. The stomach was placed in an endoscopic retrieval bag. Liver retractor was removed. Liver fell on t op of the sleeve stomach fully obscuring it and then the stomach and its endoscopic retrieval bag was removed through the right upper quadrant port site. We closed the fascia at this layer with an 0 Po lysorb suture using a Weck device. The abdomen was allowed to collapse. Trocars were removed under direct vision and all fat skin incisions were reapproximated with 4-0 Monocryl. The patient tolerate d the procedure well, was woken up in the OR and transferred to the PACU in stable condition. [id number]/[facility] #: [id number]
[2018-09-09] MEDS: D5W 1/2 NS KCl 20 Meq 1000 ML* 1,000 ML IV SCH ×2 (11:39→19:52)
--- NOTE | 2018-09-09 11:42 | PN ---
Progress Note - Progress Note Date of Service: 09/09/18 SOAP: Subjective:mild nausea;ambulating;no flatus;good pain control [] Objective: Vital Signs Temp 98.2 F 09/09/18 11:39 Pulse 71 09/09/18 11:39 Resp 10 09/09/18 11:39 BP 114/63 09/09/18 11:39 Pulse Ox 98 09/09/18 11:39 Intake & Output 09/08/18 09/09/18 09/09/18 18:59 06:59 18:59 Intake Total 1993 667 Output Total 1000 100 Balance 994 567 Weight 242 lb Intake: IV Fluids 1993 667 LR 1993 667 Oral 0 Output: Urine 1000 100 lungs:clear bilat;heart:RRR;abd:quiet,soft;incisions covered with steris and tegaderm,appropriate tenderness,no erythema or drainage;ext:nontender calves,no edema UGI:no leak Glucose fingerstick:120 [] Assessment:doing well POD#1 s/p Lap sleeve gastrectomy [] Plan:start Anival clears ambulate,inspiron po pain med prn []
[2018-09-09] MEDS: Ondansetron INJ* 2 MG/ML VIAL IV PRN (19:45)
[2018-09-09] MEDS ORDERED: Lorazepam PYXIS KEY PRN (20:45)
[2018-09-09] MEDS ORDERED: LORazepam INJ* 2 MG/ML 1 ML VIAL IV PUSH ONE (21:00)
[2018-09-10] MEDS: Ketorolac INJ* 30 MG/ML 1 ML VIAL IV PRN ×2 (02:00→09:51)
[2018-09-10] MEDS: Ondansetron INJ* 2 MG/ML VIAL IV PRN (02:07)
[2018-09-10] MEDS: D5W 1/2 NS KCl 20 Meq 1000 ML* 1,000 ML IV SCH (04:06)
[2018-09-10] MEDS: Heparin VIAL(*) 5000 UNITS/ML VIAL (FIVE THOUSAND) SUBCUT SCH ×2 (06:02→14:35)
[2018-09-10] MEDS: Insulin LISPRO* 1 UNITS UNIT SUBCUT SCH ×2 (06:07→13:05)
[2018-09-10] MEDS: Famotidine IV* 10 MG/ML 2 ML (20 mg) IV SLOW PU SCH (09:51)
--- NOTE | 2018-09-10 11:41 | PN ---
Progress Note - Progress Note Date of Service: 09/10/18 Note: S: POD #2. Still having some pain. Manfred clears well. Ambulating. Passing flatus. Feels up to going home today. Also seen by Dr. Lincoln. O: Vital Signs - 8 hr 09/10/18 09/10/18 09/10/18 04:09 08:25 09:00 Temperature 98.1 F 98 F Pulse Rate 74 78 Respiratory 18 17 16 Rate Blood Pressure 125/73 145/75 (mmHg) O2 Sat by Pulse 93 99 99 Oximetry Intake and Output Last 24 Hours 09/08/18 09/09/18 09/10/18 09/11/18 06:59 06:59 06:59 06:59 Intake Total 1993 3058 Output Total 1000 2950 700 Balance 994 108 -700 Weight 242 lb Intake: IV Fluids 1993 2638 D5W 1/2 NS 20 meq KCL 980 LR 1993 1658 Oral 0 420 Output: Urine 1000 2950 700 Gen: lying in bed; appears mildly uncomfortable Heart: reg Lungs: clear Abd: +BS; lap sites ok; soft w/ tenderness primarily at incisions, linda RUQ fs glucoses: Laboratory Tests 09/08/18 09/09/18 09/09/18 23:36 06:08 11:52 POC Glucose (mg/dL) 141 H 122 H 141 H 09/09/18 09/09/18 17:50 23:55 POC Glucose (mg/dL) 161 H 182 H A: s/p lap sleeve gastrectomy, doing well P: ok for d/c home; instructions reviewed; f/u as sched at [facility] next wk; per the patient she was instructed by Dr. Aguilar that she could hold her insulin upon d/c. She will monitor fingersticks and report at f/u.
[2018-09-10 11:57] VITALS: BP 123/62
--- NOTE | 2018-09-10 13:01 | DS ---
CC: Dr. Jimbo Aguilar; Dr. Ismael Pfeiffer * DISCHARGE SUMMARY: DATE OF ADMISSION: 09/08/18 DATE OF DISCHARGE: 09/10/18 ATTENDING SURGEON: Dr. Forrest Lincoln * (BRYANNA Colin dictating). HOSPITAL COURSE: Please refer to admission history and physical and operative note for details. Briefly, the patient was taken to the operating room on 09/08, at which time she underwent laparoscopic sleeve gastrectomy with Dr. Lincoln. Surgery was uneventful. She had a normal upper GI study the morning of postoperative day #1. She has gradually progressed in terms of oral intake of bariatric clear liquids and pain control and was deemed ready for discharge as of the morning of postoperative day #2. She was also seen by Dr. Lincoln. See separate progress note from the same date. Her fingersticks range from 122 to 182 in the previous 24 hours. She had been instructed by Dr. Aguilar that she would likely be discharged on no insulin and therefore, she will follow her fingersticks at home and hold both her long acting and short acting insulin as well as metformin upon discharge. She will continue her usual sertraline, lorazepam, zolpidem, betamethasone topically, and lisinopril. She understands that she may use Tylenol and/or uwhp-njs-bvgffcd ibuprofen or naproxen p.r.n. for yvgw-jz-ziuemmtm pain and she has an existing prescription for hydrocodone liquid p.r.n. for stronger pain. She has an [facility]. She is discharged to home in good condition. BRYANNA COLIN [id number]/[facility] #: [id number] [facility]
== END 2018-09-10 15:40 | disposition home or self-care (01) | DRG 621 ==
LOC: AA 07:43 → SSU 11:31
PROVIDERS: ADMIT Surgery; ATTEND Surgery
PROC: 0DB64Z3 Excision of Stomach, Percutaneous Endoscopic Approach, Vertical (ICD-10-PCS; principal; 2018-09-08 09:15)
DX: E66.01 Morbid (severe) obesity due to excess calories (principal); E11.65 Type 2 diabetes mellitus with hyperglycemia; G47.33 Obstructive sleep apnea (adult) (pediatric); F41.9 Anxiety disorder, unspecified; L85.8 Other specified epidermal thickening; L90.0 Lichen sclerosus et atrophicus; I10 Essential (primary) hypertension; J45.909 Unspecified asthma, uncomplicated; Z68.35 Body mass index [BMI] 35.0-35.9, adult; Z83.3 Family history of diabetes mellitus; Z80.6 Family history of leukemia; Z72.89 Other problems related to lifestyle; Z79.84 Long term (current) use of oral hypoglycemic drugs
CPT/HCPCS: 36415; 74246; 80048; 83735; 84484; 85025; 88307; 93005; C1776; J0690; J1100; J1170; J1240; J1644; J1885; J2060; J2250; J2405; J2704; J2710; J3010; J3490

== ENCOUNTER 2023-04-09 19:55 | Inpatient (IN) ==
[2023-04-09] MEDS ORDERED: Lactated Ringers 1000 ml BAG 1,000 ML IV ONE (20:48)
[2023-04-09] MEDS ORDERED: Morphine 4 MG/ML VIAL (1 ml) IV ONE (20:48)
[2023-04-09] MEDS ORDERED: Iodixanol (CONTRAST) 320 MG/ML 100 ML SDV IV ONE (21:04)
[2023-04-09 21:39] LABS: ABS Basophils 0.1 10^3/uL (0.0-0.1); ABS Eosinophils 0.1 10^3/uL (0.0-0.5); ABS Lymphocytes 3.5 10^3/uL (1.0-4.8); ABS Monocytes 1.1 10^3/uL (0.0-0.9); Eosinophil % 0.3 %; Hemoglobin 13.5 g/dL (11.5-14.3); Lymphocyte % 22.3 %; Mean Corpuscular Hemoglobin 28.6 pg (27-33); Mean Corpuscular Hgb Conc 33.8 g/dL (31-36); Mean Corpuscular Volume 84.6 fL (80-97); Mean Platelet Volume 6.4 fL (7.5-11.2); Platelet Count 411 10^3/uL (150-450); Red Blood Count 4.73 10^6/uL (3.63-4.92); Red Cell Distribution Width 14.2 % (12-17); White Blood Count 15.7 10^3/uL (3.8-11.8)
[2023-04-09] MEDS ORDERED: HYDROmorphone 0.5 MG/0.5 ML SYRINGE IV ONE (21:59)
[2023-04-09] MEDS ORDERED: Lidocaine 1% MPF 5 ML VIAL INJ ONE (23:07)
[2023-04-10 02:39] LABS: Body Fluid Appearance Cloudy; Body Fluid Color Yellow; Body Fluid Source Synovial Fluid
[2023-04-10 03:29] LABS: Body Fluid Total Cells Counted 200
[2023-04-10 03:30] LABS: Body Fluid Mono 17 %
[2023-04-10 03:34] LABS: Body Fluid Total Nucleated 97507 /mcL
[2023-04-10 05:23] LABS: Rapid COVID-19 Molecular Undetected (Undetected)
[2023-04-10 05:26] LABS: Influenza A Molecular Negative (Negative); Influenza B Molecular Negative (Negative)
[2023-04-10] MEDS: HYDROmorphone 0.5 MG/0.5 ML SYRINGE IV SLOW PU PRN ×2 (06:45→13:24)
[2023-04-10] MEDS ORDERED: Dextrose 50% Syringe 50 ml 25 GM/50 ML SYRINGE IV PUSH PRN (07:53)
[2023-04-10] MEDS ORDERED: Albuterol HFA INHALER 8 gm MDI INH PRN (07:54)
[2023-04-10] MEDS ORDERED: Senna TAB 8.6 mg TAB PO PRN (07:56)
[2023-04-10] MEDS: Lactated Ringers 1000 ml BAG 1,000 ML IV SCH ×2 (08:09→19:31)
[2023-04-10] MEDS: Multivitamins/Minerals TAB PO SCH (08:19)
[2023-04-10 09:05] LABS: Calcium 8.9 mg/dL (8.6-10.3); Creatinine, Serum 0.78 mg/dL (0.51-0.95); Potassium 3.7 mmol/L (3.5-5.0); eGFR CKD-EPI 87.4 (>60)
[2023-04-10 09:09] LABS: ABS Basophils 0.1 10^3/uL (0.0-0.1); ABS Eosinophils 0.1 10^3/uL (0.0-0.5); ABS Lymphocytes 1.3 10^3/uL (1.0-4.8); ABS Monocytes 0.8 10^3/uL (0.0-0.9); ABS Neutrophils 6.8 10^3/uL (1.5-7.6); Eosinophil % 1.1 %; Hematocrit 37.6 % (35-45); Hemoglobin 12.8 g/dL (11.5-14.3); Lymphocyte % 14.5 %; Mean Corpuscular Hemoglobin 28.9 pg (27-33); Mean Corpuscular Hgb Conc 33.9 g/dL (31-36); Mean Corpuscular Volume 85.1 fL (80-97); Mean Platelet Volume 6.5 fL (7.5-11.2); Platelet Count 352 10^3/uL (150-450); Red Blood Count 4.41 10^6/uL (3.63-4.92); Red Cell Distribution Width 14.1 % (12-17)
[2023-04-10] MEDS ORDERED: HYDROmorphone 1 MG/1 ML SYRINGE ONE (13:18)
[2023-04-10] MEDS ORDERED: fentaNYL 100 mcg/2 ml 50 MCG/ML VIAL ONE (13:47)
[2023-04-10] MEDS ORDERED: Midazolam 2 mg/2 ml VIAL 1 mg/ml 2 ml VIAL (2 mg) ONE (13:47)
[2023-04-10] MEDS ORDERED: Propofol 10 MG/ML 20 ML BTL ONE (13:49)
[2023-04-10] MEDS ORDERED: Lidocaine 2% PF 5 ML VIAL ONE (13:50)
[2023-04-10] MEDS ORDERED: Dexamethasone IV 4 MG/ML VIAL 1 ml VIAL ONE (14:45)
[2023-04-10] MEDS ORDERED: Ondansetron 4 mg VIAL 2 MG/ML 2 ml VIAL ONE (14:45)
[2023-04-10] MEDS ORDERED: Acetaminophen IV 1 GM/100ML 1,000 MG/100 ML BAG IV ONE (14:52)
[2023-04-10] MEDS ORDERED: Bupivacaine 0.5% 50 ML MDV VIAL ONE (15:11)
[2023-04-10] MEDS ORDERED: Naloxone 0.4 mg VIAL 0.4 mg/ml 1 ml VIAL IV PRN (15:37)
[2023-04-10] MEDS ORDERED: HYDROmorphone 1 MG/1 ML SYRINGE IV PRN (15:37)
[2023-04-10] MEDS ORDERED: Ondansetron 4 mg VIAL 2 MG/ML 2 ml VIAL IV PRN ×2 (15:37→17:17)
[2023-04-10] MEDS ORDERED: fentaNYL 100 mcg/2 ml 50 MCG/ML VIAL IV PRN (15:37)
[2023-04-10] MEDS ORDERED: ceFAZolin 2 GM in NS PREMIX 2 GM/100 ML BAG IVPB SCH ×2 (17:00→18:00)
[2023-04-10] MEDS ORDERED: Ondansetron ODT 4 mg TAB 4 MG TAB PO PRN (17:17)
[2023-04-10] MEDS ORDERED: Magnesium Hydroxide LIQ 30 ML UDC PO PRN (17:17)
[2023-04-10] MEDS ORDERED: Lactulose 30 ml UDC PO PRN (17:17)
[2023-04-10] MEDS ORDERED: ceFAZolin 2 GM PREMIX 2 GM/100 ML BAG IVPB SCH (18:06)
[2023-04-10] MEDS ORDERED: ceFAZolin 2 GM PREMIX 2 GM/50 ML BAG IVPB SCH (18:09)
[2023-04-10] MEDS: ceFAZolin 2 GM PREMIX 2 GM/50 ML BAG IVPB SCH (18:27)
[2023-04-10] MEDS: BIOTIN 2500 MCG PO SCH (19:36)
[2023-04-10] MEDS: Magnesium Hydroxide LIQ 30 ML UDC PO SCH (20:46)
[2023-04-11] MEDS: ceFAZolin 2 GM PREMIX 2 GM/50 ML BAG IVPB SCH ×3 (02:41→18:08)
[2023-04-11] MEDS: HYDROmorphone 0.5 MG/0.5 ML SYRINGE IV SLOW PU PRN ×3 (05:02→20:14)
[2023-04-11] MEDS: Lactated Ringers 1000 ml BAG 1,000 ML IV SCH ×2 (07:52→22:33)
[2023-04-11] MEDS: Multivitamins/Minerals TAB PO SCH (10:05)
[2023-04-11] MEDS: BIOTIN 2500 MCG PO SCH (10:08)
[2023-04-11] MEDS: Magnesium Hydroxide LIQ 30 ML UDC PO SCH (10:08)
[2023-04-11] MEDS: Enoxaparin 40 MG/0.4 ML SYR SUBCUT SCH (11:27)
[2023-04-11 11:55] LABS: ABS Basophils 0.2 10^3/uL (0.0-0.1); ABS Eosinophils 0.4 10^3/uL (0.0-0.5); ABS Lymphocytes 2.5 10^3/uL (1.0-4.8); ABS Neutrophils 7.1 10^3/uL (1.5-7.6); ABS Nucleated RBC 0.01 10^3/ul; Eosinophil % 3.6 %; Hemoglobin 10.7 g/dL (11.5-14.3); Lymphocyte % 22.8 %; Mean Corpuscular Hemoglobin 28.4 pg (27-33); Mean Corpuscular Hgb Conc 33.4 g/dL (31-36); Mean Corpuscular Volume 85.2 fL (80-97); Mean Platelet Volume 6.3 fL (7.5-11.2); Nucleated Red Blood Cells % 0.1 %/100WBC (0.0-0.8); Platelet Count 354 10^3/uL (150-450); Red Blood Count 3.76 10^6/uL (3.63-4.92); White Blood Count 11.1 10^3/uL (3.8-11.8)
[2023-04-11 12:13] LABS: C Reactive Protein 150.66 mg/L (<8.01); Calcium 8.4 mg/dL (8.6-10.3); Creatinine, Serum 0.96 mg/dL (0.51-0.95); Magnesium 2.2 mg/dL (1.9-2.7); Phosphorus 2.6 mg/dL (2.5-5.0); Potassium 3.7 mmol/L (3.5-5.0); eGFR CKD-EPI 68.2 (>60)
[2023-04-11] MEDS: Morphine 2 MG/ML SYRINGE IV PRN ×3 (12:15→22:40)
[2023-04-12] MEDS: ceFAZolin 2 GM PREMIX 2 GM/50 ML BAG IVPB SCH ×3 (02:56→17:48)
[2023-04-12] MEDS: HYDROmorphone 0.5 MG/0.5 ML SYRINGE IV SLOW PU PRN ×3 (07:37→19:30)
[2023-04-12] MEDS: Multivitamins/Minerals TAB PO SCH (09:31)
[2023-04-12] MEDS: BIOTIN 2500 MCG PO SCH (09:32)
[2023-04-12] MEDS: Morphine 2 MG/ML SYRINGE IV PRN ×3 (09:33→22:15)
[2023-04-12] MEDS: Polyethylene Glycol 3350 17 GM PACKET PO PRN (09:33)
[2023-04-12] MEDS ORDERED: HYDROmorphone 1 MG/1 ML SYRINGE IV ONE (10:09)
[2023-04-12 10:16] LABS: ABS Basophils 0.1 10^3/uL (0.0-0.1); ABS Eosinophils 0.4 10^3/uL (0.0-0.5); ABS Lymphocytes 2.4 10^3/uL (1.0-4.8); ABS Monocytes 0.7 10^3/uL (0.0-0.9); Eosinophil % 4.3 %; Hematocrit 32.2 % (35-45); Hemoglobin 10.9 g/dL (11.5-14.3); Lymphocyte % 24.7 %; Mean Corpuscular Hgb Conc 33.9 g/dL (31-36); Mean Corpuscular Volume 85.5 fL (80-97); Mean Platelet Volume 6.6 fL (7.5-11.2); Platelet Count 371 10^3/uL (150-450); Red Blood Count 3.77 10^6/uL (3.63-4.92); White Blood Count 9.6 10^3/uL (3.8-11.8)
[2023-04-12] MEDS: Enoxaparin 40 MG/0.4 ML SYR SUBCUT SCH (13:49)
[2023-04-12] MEDS: Magnesium Hydroxide LIQ 30 ML UDC PO PRN (13:49)
[2023-04-12 14:50] LABS: Glucose, BF 83 mg/dL; Total Protein, BF 4.6 g/dL
[2023-04-12] MEDS: HYDROcodone/ACETAMIN 5/325 mg TAB PO PRN ×2 (17:48→23:18)
[2023-04-13] MEDS: HYDROmorphone 0.5 MG/0.5 ML SYRINGE IV SLOW PU PRN ×2 (01:35→09:40)
[2023-04-13] MEDS: ceFAZolin 2 GM PREMIX 2 GM/50 ML BAG IVPB SCH ×3 (01:37→18:41)
[2023-04-13] MEDS: HYDROcodone/ACETAMIN 5/325 mg TAB PO PRN ×4 (05:29→20:41)
[2023-04-13] MEDS: Morphine 2 MG/ML SYRINGE IV PRN (05:29)
[2023-04-13 06:39] LABS: ABS Basophils 0.1 10^3/uL (0.0-0.1); ABS Eosinophils 0.4 10^3/uL (0.0-0.5); ABS Lymphocytes 2.3 10^3/uL (1.0-4.8); ABS Monocytes 0.7 10^3/uL (0.0-0.9); ABS Neutrophils 4.3 10^3/uL (1.5-7.6); Eosinophil % 5.3 %; Hemoglobin 10.2 g/dL (11.5-14.3); Lymphocyte % 29.4 %; Mean Corpuscular Hemoglobin 29.1 pg (27-33); Mean Corpuscular Volume 85.5 fL (80-97); Mean Platelet Volume 6.3 fL (7.5-11.2); Platelet Count 360 10^3/uL (150-450); Red Cell Distribution Width 14.1 % (12-17); White Blood Count 7.6 10^3/uL (3.8-11.8)
[2023-04-13] MEDS: Multivitamins/Minerals TAB PO SCH (09:43)
[2023-04-13] MEDS ORDERED: Morphine ER 15 mg TAB ** extended release PO SCH (11:00)
[2023-04-13] MEDS: Enoxaparin 40 MG/0.4 ML SYR SUBCUT SCH (11:40)
[2023-04-13] MEDS: oxyCODONE SR 15 mg TAB PO SCH ×2 (13:54→23:04)
[2023-04-13] MEDS: Magnesium Hydroxide LIQ 30 ML UDC PO PRN (13:54)
[2023-04-13] MEDS: Polyethylene Glycol 3350 17 GM PACKET PO PRN (13:55)
[2023-04-14] MEDS: HYDROcodone/ACETAMIN 5/325 mg TAB PO PRN ×5 (01:07→17:51)
[2023-04-14] MEDS: ceFAZolin 2 GM PREMIX 2 GM/50 ML BAG IVPB SCH ×3 (01:23→17:51)
[2023-04-14 06:50] LABS: ABS Basophils 0.1 10^3/uL (0.0-0.1); ABS Eosinophils 0.4 10^3/uL (0.0-0.5); ABS Lymphocytes 3.2 10^3/uL (1.0-4.8); ABS Monocytes 0.5 10^3/uL (0.0-0.9); ABS Neutrophils 4.7 10^3/uL (1.5-7.6); ABS Nucleated RBC 0.01 10^3/ul; Hematocrit 31.3 % (35-45); Hemoglobin 10.5 g/dL (11.5-14.3); Lymphocyte % 35.8 %; Mean Corpuscular Hemoglobin 28.6 pg (27-33); Mean Corpuscular Hgb Conc 33.5 g/dL (31-36); Mean Corpuscular Volume 85.5 fL (80-97); Mean Platelet Volume 6.5 fL (7.5-11.2); Nucleated Red Blood Cells % 0.1 %/100WBC (0.0-0.8); Platelet Count 414 10^3/uL (150-450); Red Blood Count 3.67 10^6/uL (3.63-4.92); Red Cell Distribution Width 13.5 % (12-17); White Blood Count 8.8 10^3/uL (3.8-11.8)
[2023-04-14 07:08] LABS: C Reactive Protein 126.63 mg/L (<8.01); Calcium 8.9 mg/dL (8.6-10.3); Creatinine, Serum 0.78 mg/dL (0.51-0.95); Phosphorus 3.9 mg/dL (2.5-5.0); eGFR CKD-EPI 87.4 (>60)
[2023-04-14] MEDS: oxyCODONE SR 15 mg TAB PO SCH ×2 (10:01→21:52)
[2023-04-14] MEDS: Multivitamins/Minerals TAB PO SCH (10:02)
[2023-04-14] MEDS: Magnesium Hydroxide LIQ 30 ML UDC PO PRN (11:34)
[2023-04-14] MEDS: Polyethylene Glycol 3350 17 GM PACKET PO PRN (11:35)
[2023-04-14] MEDS: Enoxaparin 40 MG/0.4 ML SYR SUBCUT SCH (11:35)
[2023-04-15] MEDS: HYDROcodone/ACETAMIN 5/325 mg TAB PO PRN ×4 (01:02→19:55)
[2023-04-15] MEDS: ceFAZolin 2 GM PREMIX 2 GM/50 ML BAG IVPB SCH ×3 (01:57→17:57)
[2023-04-15] MEDS: Multivitamins/Minerals TAB PO SCH (08:38)
[2023-04-15] MEDS: Magnesium Hydroxide LIQ 30 ML UDC PO PRN (08:38)
[2023-04-15] MEDS: Polyethylene Glycol 3350 17 GM PACKET PO PRN (08:38)
[2023-04-15] MEDS: oxyCODONE SR 15 mg TAB PO SCH ×2 (08:39→21:13)
[2023-04-15] MEDS: Enoxaparin 40 MG/0.4 ML SYR SUBCUT SCH (10:52)
[2023-04-16] MEDS: ceFAZolin 2 GM PREMIX 2 GM/50 ML BAG IVPB SCH ×2 (02:10→10:56)
[2023-04-16 04:59] LABS: ABS Basophils 0.1 10^3/uL (0.0-0.1); ABS Eosinophils 0.3 10^3/uL (0.0-0.5); ABS Lymphocytes 2.6 10^3/uL (1.0-4.8); ABS Monocytes 0.7 10^3/uL (0.0-0.9); ABS Neutrophils 5.7 10^3/uL (1.5-7.6); Eosinophil % 3.3 %; Hematocrit 33.4 % (35-45); Hemoglobin 11.1 g/dL (11.5-14.3); Lymphocyte % 27.9 %; Mean Corpuscular Hemoglobin 28.4 pg (27-33); Mean Corpuscular Hgb Conc 33.3 g/dL (31-36); Mean Corpuscular Volume 85.3 fL (80-97); Platelet Count 560 10^3/uL (150-450); Red Blood Count 3.92 10^6/uL (3.63-4.92); Red Cell Distribution Width 13.5 % (12-17); White Blood Count 9.4 10^3/uL (3.8-11.8)
[2023-04-16] MEDS: HYDROcodone/ACETAMIN 5/325 mg TAB PO PRN ×2 (05:12→10:31)
[2023-04-16] MEDS: oxyCODONE SR 15 mg TAB PO SCH (09:23)
[2023-04-16] MEDS: Multivitamins/Minerals TAB PO SCH (09:23)
[2023-04-16 10:59] VITALS: BP 122/63
[2023-04-16 11:29] LABS: Rapid COVID-19 Molecular Undetected (Undetected)
[2023-04-16] MEDS: Enoxaparin 40 MG/0.4 ML SYR SUBCUT SCH ×2 (12:14→12:28)
== END 2023-04-16 13:05 | disposition swing bed (61) | DRG 494 ==
LOC: EDHOLD 19:55 → ED 19:55 → SUATTDRO 04-10 04:01 → MED 04-10 11:58 → EDHOLD 04-10 12:08 → AA 04-10 12:13 → MED 04-10 12:15
PROVIDERS: ADMIT Internal Medicine; ATTEND Internal Medicine